=== PATIENT | female | born 1955 | race Caucasian/White ===

== ENCOUNTER 2021-03-16 08:52 | Inpatient (IN) | payer OTHER ==
[~2021-03-16] VITALS: Ht 154 cm; Wt 79.2 kg
[2021-03-16] MEDS ORDERED: diphenhydrAMINE 25 MG TAB (BENADRYL) PO PRN (11:45)
[2021-03-16] MEDS ORDERED: HYDROcodone/APAP 5 MG/325 MG (LORTAB) TAB PO PRN (11:45)
[2021-03-16] MEDS ORDERED: LOPERAMIDE 2 MG (IMODIUM) TABLET PO PRN (11:45)
[2021-03-16] MEDS ORDERED: LACTULOSE SYRUP 10GM/15ML (ENULOSE) 30ML UDC PO PRN (11:45)
[2021-03-16] MEDS ORDERED: guaiFENesin/CODEINE (ROBITUSSIN AC) 10ML UDC PO PRN (11:45)
[2021-03-16] MEDS ORDERED: BISACODYL 10 MG SUPP (DULCOLAX) PR PRN (11:45)
[2021-03-16] MEDS ORDERED: ALPRAZolam 0.25 MG (XANAX) TAB PO PRN (11:45)
[2021-03-16] MEDS ORDERED: FLEET ENEMA ADULT 1 EA BTL PR PRN (11:45)
[2021-03-16] MEDS ORDERED: DOCUSATE SODIUM 100 MG (COLACE) CAP PO PRN (11:45)
[2021-03-16] MEDS ORDERED: CALCIUM CARBONATE 500 MG (TUMS) TAB.CHEW PO PRN (11:45)
[2021-03-16] MEDS ORDERED: METF-397 PO (13:07)
[2021-03-16] MEDS ORDERED: HYDR-3820 PO (13:07)
[2021-03-16] MEDS ORDERED: DULO60CA59 PO (13:07)
[2021-03-16] MEDS ORDERED: EMPA25TA PO (13:07)
[2021-03-16] MEDS ORDERED: OMEP10CA5 PO (13:07)
[2021-03-16] MEDS ORDERED: FERR-74 PO (13:07)
[2021-03-16] MEDS ORDERED: INSU100V5 SQ (13:07)
[2021-03-16] MEDS ORDERED: LISI10TA25 PO (13:07)
[2021-03-16] MEDS ORDERED: DEXA2TAB PO ×2 (13:07)
[2021-03-16] MEDS ORDERED: INSU100V16 SQ (13:07)
[2021-03-16] MEDS ORDERED: NALO4SPR NS (13:07)
[2021-03-16] MEDS ORDERED: METO50TA7 PO (13:07)
[2021-03-16 13:40] VITALS: BP 138/62
--- NOTE | 2021-03-16 14:24 | Physical Therapy Evaluation ---
PT Evaluation-General Medical Diagnosis Admission Date Mar 16, 2021 at 13:40 Medical Diagnosis: Cerebral aneurysm Onset Date: Mar 16, 2021 Therapy Diagnosis Therapy Diagnosis: weakness; abn gait Precautions Precautions/Isolations: Standard Precautions Referral Physician: Malu Reason for Referral: Evaluation/Treatment Medical History Pertinent Medical History: CVA, DM, GERD, HTN Additional Medical History PTST, chronic fatigue syndrome, anemia, bells palsy Current History Pt diagnosed with [place] Palsy and through scanning, found the Cerebral aneurysm. s/p clip ligation 03/09/2021. Reviewed History: Yes Social History Home: Single Level Current Living Status: Spouse (family; several family members in her home) Entry Into Home: Ramp Prior Prior Level of Function SCALE: Activities may be completed with or without assistive devices. 7-Gwfmivmgfj-neacuzb completes the activity by him/herself with no assistance from a helper. 5-Set-up or Clean-up Assistance-helper sets up or cleans up; patient completes activity. [place] assists only prior to or following the activity. 4-Supervision or Touching Assistance-helper provides verbal cues and/or touching/steadying and/or contact guard assistance as patient completes ac tivity. Assistance may be provided throughout the activity or intermittently. 3-Partial/Moderate Assistance-helper does LESS THAN HALF the effort. [place] lifts, holds or supports trunk or limbs, but provides less than half the effort. 2-Substantial/Maximal Assistance-helper does MORE THAN HALF the effort. [place] lifts or holds trunk or limbs and provides more than half the effort. 1-Euvodlovw-mllmdz does ALL the effort. Patient does none of the effort to complete the activity. Or, the assistance of 2 or more helpers is required for the patient to complete the activity. If activity was not attempted, code reason: 7-Patient Refused. 9-Not Applicable-not attempted and the patient did not perform the activity before the current illness, exacerbation or injury. 10-Not Attempted due to Environmental Limitations-(lack of equipment, weather restraints, etc.). 88-Not Attempted due to Medical Conditions or Safety Concerns. Bed Mobility: 6 Transfers (B,C,W/C): 6 Gait: 6 Stairs: 6 Indoor Mobility (Ambulation): Independent Stairs: Independent Pt has available for use: SPC, FWW, shower chair and bedside commode. PT Evaluation-Current Subjective "I'm tired and worn out." Agrees to PT encounter. Pt/Family Goals Her goal is to return home with family at an indep to mod indep level of mobility. Objective Patient Orientation: Person, Place, Time, Situation ROM/Strength ROM Lower Extremities WNL Strength Lower Extremities Grossly 4/5 throughout. Integumentary/Posture Integumentary Refer to nursing notes for full assessment Bowel Incontinence: Yes (Pt reports incont for approx 6 months; medication related) Bladder Incontinence: No Posture normal and symmetrical Neuromuscular (Tone, Coordination, Reflexes) intact and functional Sensory Vision: Functional Hearing: Functional Hand Dominance: Right Sensation Right Lower Extremit: Intact Sensation Left Lower Extremity: Intact Transfers Roll Left & Right (QC): 4 Sit to Lying (QC): 4 Lying to Sitting/Side of Bed(Q: 4 Sit to Stand (QC): 4 (CGA for balance and safety) Chair/Ebx-es-Rrimq Xfer(QC): 4 Toilet Transfer (QC): 4 Car Transfer (QC): 3 (min assist to turn and with legs. ) Gait Does the Patient Walk?: Yes Mode of Locomotion: Walk Anticipated Mode of Locomotion: Walk Walk 10 feet (QC): 4 Walk 50 ft with 2 Turns(QC): 4 Walk 150 ft (QC): 3 (min assist for balacne and safety. ) Walking 10ft/uneven surface-QC: 7 (will assess in following visit. ) Gait Assistive Device: FWW Comments/Gait Description Min to CGA with gait for safety and balance; skilled cues for safe use of walker. Wheelchair Training Wheel 50 ft with 2 turns (QC): 9 Wheel 150 ft (QC): 9 Stairs 1 Step (curb) (QC): 7 4 Steps (QC): 7 12 Steps (QC): 7 see follow up note. Balance Sitting Static: Normal Sitting Dynamic: Normal Standing Static: Fair Standing Dynamic: Fair Picking up an Object (QC): 3 (min assist for safety) Assessment/Needs Pt is post cerebral aneurysm with slight functional strength deficits, balance deficits and impaired functional bed mobility, transfers and gait which impacts indep mobility and the ability to care for herself at home as before. Rehab Potential: Good PT Short Term Goals Short Term Goals Time Frame: Mar 23, 2021 Sit to lyin Lying to sitting on side of be: 6 Sit to stand: 5 Chair/zyz-ci-gnrsb transfer: 5 Walk 150 feet: 4 PT Tool Grinding Technician Goals Usp Goals PT Usp Goals Time Frame: Mar 31, 2021 Roll Left & Right (QC): 6 Sit to Lying (QC): 6 Lying-Sitting on Side/Bed(QC): 6 Sit to Stand (QC): 6 Chair/Pmn-gr-Oxqqw Xfer(QC): 6 Toilet Transfer (QC): 6 Car Transfer (QC): 6 Does the Patient Walk: Yes Walk 10 feet (QC): 6 Walk 50ft with 2 Turns (QC): 6 Walk 150 ft (QC): 6 Walking 10ft on Uneven Surface: 6 1 Step (curb) (QC): 6 4 Steps (QC): 6 12 Steps (QC): 4 Picking up an Object (QC): 5 Does the Pt use WC or Scooter?: No Wheel 50 feet with 2 turns (QC: 9 Wheel 150 feet: 9 PT Plan Problem List Problem List: Activity Tolerance, Functional Strength, Safety, Balance, Gait, Transfer, Bed Mobility Treatment/Plan Treatment Plan: Continue Plan of Care Treatment Plan: Bed Mobility, Education, Functional Activity Tracey, Functional Strength, Group Therapy, Gait, Safety, Therapeutic Exercise, Transfers Treatment Duration: Mar 31, 2021 Frequency: At least 5 of 7 days/Wk (IRF) Estimated Hrs Per Day: 1.5 hours per day Patient and/or Family Agrees t: Yes Safety Risks/Education Patient Education: Safety Issues Teaching Recipient: Patient Teaching Methods: Demonstration, Discussion Response to Teaching: Reinforcement Needed Time/GCodes Time In: 1340 Time Out: 1355 Total Billed Treatment Time: 15 Total Billed Treatment visit CECILY TORRES PT Mar 16, 2021 14:24
--- NOTE | 2021-03-16 15:18 | Physical Therapy Daily Note ---
PT Daily Note-Current Subjective Patient agrees to therapy. Pain Numeric Pain Scale: 5-Moderate Pain Location: Right Location Body Site: Face Pain Description: Ache Mental Status Patient Orientation: Person, Time, Situation Transfers SCALE: Activities may be completed with or without assistive devices. 6-Zevmdibrdy-ccicpxu completes the activity by him/herself with no assistance from a helper. 5-Set-up or Clean-up Assistance-helper sets up or cleans up; patient completes activity. [place] assists only prior to or following the activity. 4-Supervision or Touching Assistance-helper provides verbal cues and/or touching/steadying and/or contact guard assistance as patient completes activity. Assistance may be provided throughout the activity or intermittently. 3-Partial/Moderate Assistance-helper does LESS THAN HALF the effort. [place] lifts, holds or supports trunk or limbs, but provides less than half the effort. 2-Substantial/Maximal Assistance-helper does MORE THAN HALF the effort. [place] lifts or holds trunk or limbs and provides more than half the effort. 4-Fqimiwcou-bfvnzr does ALL the effort. Patient does none of the effort to complete the activity. Or, the assistance of 2 or more helpers is required for the patient to complete the activity. If activity was not attempted, code reason: 7-Patient Refused. 9-Not Applicable-not attempted and the patient did not perform the activity before the current illness, exacerbation or injury. 10-Not Attempted due to Environmental Limitations-(lack of equipment, weather restraints, etc.). 88-Not Attempted due to Medical Conditions or Safety Concerns. Sit to Lying (QC): 4 Lying to Sitting/Side of Bed(Q: 4 Sit to Stand (QC): 4 (x 8 sets) Chair/Nqe-rp-Qxrnp Xfer(QC): 4 Gait Training Does the Patient Walk?: Yes Distance: 150' x 2 Walk 10 feet (QC): 4 Walk 50 ft with 2 Turns(QC): 4 Walk 150 ft (QC): 4 Walking 10ft/uneven surface-QC: 4 Gait Assistive Device: FWW slow, steady CGA for safety Stair Training Stair Training: Handrails/: 2 handrails #of Steps: 4 1 Step (curb) (QC): 3 4 Steps (QC): 3 12 Steps (QC): 9 Stairs: Pattern: Step to Balance Picking up an Object (QC): 6 (seated position) Exercises Seated Therapy Exercises: Ankle pumps, Long arc quads, Hip flexion Seated Reps: 15 Treatments Pt. is seen this date for co-treatment with OT/PT due to poor endurance s/p transfer via private vehicle from [place]. Pt. presents s/p craniotomy, and reports difficulty with light sensitivity, headache, and severe fatigue. OT facilitates ADL skills training, visual skills assessment, UE assessment, and provides energy conservation education while PT facilitates dynamic standing balance training, safety with movement and transfers, assistive device training, and LE strength assessment. Pt. is able to ambulate with CGA/min assist with walker, with cues for safety. She does report double vision, but declines eye patch at this time, and states that she is getting medication for this. OT will complete further assessment of this at later time. Note some impulsive behavior during ambulation and movement, with cues for safety and use of walker. Will continue to assess cognition/sequencing and problem solving skills to increase o verall independence with functional tasks for successful return home. Assessment Patient tolerated treatment well and returned to bed with 4 rails up and bed alarm activated. Patient reports fatigue and requests pain medication due to MARQUEZ. RN notified. PT Short Term Goals Short Term Goals Time Frame: Mar 23, 2021 Sit to lyin Lying to sitting on side of be: 6 Sit to stand: 5 Chair/xjs-my-rdbix transfer: 5 Walk 150 feet: 4 PT Group Home Goals Leather Dresser Goals PT Group Home Goals Time Frame: Mar 31, 2021 Roll Left & Right (QC): 6 Sit to Lying (QC): 6 Lying-Sitting on Side/Bed(QC): 6 Sit to Stand (QC): 6 Chair/Fqs-cv-Ohjth Xfer(QC): 6 Toilet Transfer (QC): 6 Car Transfer (QC): 6 Does the Patient Walk: Yes Walk 10 feet (QC): 6 Walk 50ft with 2 Turns (QC): 6 Walk 150 ft (QC): 6 Walking 10ft on Uneven Surface: 6 1 Step (curb) (QC): 6 4 Steps (QC): 6 12 Steps (QC): 4 Picking up an Object (QC): 5 Does the Pt use WC or Scooter?: No Wheel 50 feet with 2 turns (QC: 9 Wheel 150 feet: 9 PT Plan Treatment/Plan Treatment Plan: Continue Plan of Care Treatment Plan: Bed Mobility, Education, Functional Activity Tracey, Functional Strength, Group Therapy, Gait, Safety, Therapeutic Exercise, Transfers Treatment Duration: Mar 31, 2021 Frequency: At least 5 of 7 days/Wk (IRF) Estimated Hrs Per Day: 1.5 hours per day Patient and/or Family Agrees t: Yes Time/GCodes Time In: 1405 Time Out: 1525 Total Billed Treatment Time: 80 Total Billed Treatment 1 visit FA x 5 80 min (cotreat with OT) WILD GOLDBERG PT Mar 16, 2021 15:18
--- NOTE | 2021-03-16 15:21 | Occupational Therapy Eval ---
OT Evaluation-General/PLF Medical Diagnosis Admission Date Mar 16, 2021 at 13:40 Medical Diagnosis: Cerebral aneurysm Onset Date: Mar 16, 2021 Therapy Diagnosis Therapy Diagnosis: Weakness, Decreased ADL skills Precautions Precautions/Isolations: Fall Prevention, Standard Precautions Referral Physician: Malu Coronado Reason: Activity Tolerance, Self Care, Evaluation/Treatment, Strengthening/ROM Medical History Pertinent Medical History: Arthritis, CVA, DM, GERD, HTN Additional Medical History Dyslipidemia Current History Pt. 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 s/p right frontotemporal craniotomy. Subarachnoid dissection. Pt. currently has headaches, light sensitivity, memory deficits, and impulsively. Reviewed History: Yes Social History Home: Single Level Current Living Status: Spouse (family; several family members in her home) Entry Into Home: Ramp Steps Inside Home: 1 ADL-Prior Level of Function SCALE: Activities may be completed with or without assistive devices. 0-Kxrjcsmbzm-krifvsw completes the activity by him/herself with no assistance from a helper. 5-Set-up or Clean-up Assistance-helper sets up or cleans up; patient completes activity. [place] assists only prior to or following the activity. 4-Supervision or Touching Assistance-helper provides verbal cues and/or touching/steadying and/or contact guard assistance as patient completes activity. Assistance may be provided throughout the activity or intermittently. 3-Partial/Moderate Assistance-helper does LESS THAN HALF the effort. [place] lifts, holds or supports trunk or limbs, but provides less than half the effort. 2-Substantial/Maximal Assistance-helper does MORE THAN HALF the effort. [place] lifts or holds trunk or limbs and provides more than half the effort. 7-Genwrtkeu-kwqlpg does ALL the effort. Patient does none of the effort to complete the activity. Or, the assistance of 2 or more helpers is required for the patient to complete the activity. If activity was not attempted, code reason: 7-Patient Refused. 9-Not Applicable-not attempted and the patient did not perform the activity before the current illness, exacerbation or injury. 10-Not Attempted due to Environmental Limitations-(lack of equipment, weather restraints, etc.). 88-Not Attempted due to Medical Conditions or Safety Concerns. ADL PLOF Comments Pt. states that previous to this hospitalization, she was independent with daily skills. She has a walker from a previous broken ankle that she recovered from. Pt. lives in [place] with her spouse, daughter, and multiple grandchildren. Her spouse is retired and in good health. She is currently retired as well. Self Care: Unknown Functional Cognition: Unknown DME/Equipment Comments Pt. has a walker but does not use. 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 OT Current Status Subjective Pt. reports headache and light sensitivity. Does request pain medication. Does not state pain level. Mental Status/Objective Patient Orientation: Person, Place Current Hand Dominance: Right Upper Extremity ROM Pt. is able to actively range left shoulder to approximately 90 degrees. Right shoulder to approximately 100 degrees. She states that left shoulder has arthritis. Upper Extremity Strength Pt. demonstrates approximately 4/5 strength within available range throughout. ADL-Treatment Eating (QC): 5 (per report) Oral Hygiene (QC): 7 Shower/Bathe Self (QC): 4 (CGA for balance and cues for safety. Pt. impulsive at times in shower. Will sit, stand multiple times.) Upper Body Dressing (QC): 4 Lower Body Dressing (QC): 4 (CGA/SBA in shower to doff/don pants.) On/Off Footwear (QC): 5 (Slipper socks and slippers.) Toileting Hygiene (QC): 4 (SBA in stance. Pt. is incontinent of bowel due to medication, but she is able to cleanse self with SBA for balance and safety.) Other Treatments Pt. is seen this date for co-treatment with OT/PT due to poor endurance s/p transfer via private vehicle from [place], [place]. Pt. presents s/p craniotomy, and reports difficulty with light sensitivity, headache, and severe fatigue. OT facilitates ADL skills training, visual skills assessment, UE assessment, and provides energy conservation education while PT facilitates dynamic standing balance training, safety with movement and transfers, assistive device training, and LE strength assessment. Pt. is able to ambulate with CGA/min assist with walker, with cues for safety. She does report double vision, but declines eye patch at this time, and states that she is getting medication for this. OT will complete further assessment of this at later time. Note some impulsive behavior during ambulation and movement, with cues for safety and use of walker. Will continue to assess cognition/sequencing and problem solving skills to increase overall independence with functional tasks for successful return home. Education OT Patient Education: Correct positioning, Exercise program, Modified ADL techniques, Progress toward Goal/Update tx plan, Purpose of tx/functional activities, Reviewed precautions, Rehab process, Transfer techniques Teaching Recipient: Patient Teaching Methods: Demonstration, Discussion Response to Teaching: Verbalize Understanding, Return Demonstration OT Jail Goals Jail Goals Time Frame: Mar 30, 2021 Eating (QC): 6 Oral Hygiene (QC): 6 Toileting Hygiene (QC): 6 Shower/Bathe Self (QC): 6 Upper Body Dressing (QC): 6 Lower Body Dressing (QC): 6 On/Off Footwear (QC): 6 Additional Goals: 1-Demonstrate ADL Tasks, 2-Verbalize Understanding, 3- ImproveStrength/Tracey 1=Demonstrate adherence to instructed precautions during ADL tasks. 2=Patient will verbalize/demonstrate understanding of assistive devices/modifica tions for ADL. 3=Patient will improve strength/tolerance for activity to enable patient to perform ADL's. OT Education/Plan Problem List/Assessment Assessment: Decreased Activ Tolerance, Dependent Transfers, Impaired Cognition, Impaired Funct Balance, Impaired I ADL's, Impaired Self-Care Skills, Restricted Funct UE ROM, Visual-Perceptual Deficit Discharge Recommendations Plan/Recommendations: Continue POC Therapy Discharge Recommendati: Post Acute OT Treatment Plan/Plan of Care Treatment,Training & Education: Yes Patient would benefit from OT for education, treatment and training to promote independence in ADL's, mobility, safety and/or upper extremity function for ADL's. Plan of Care: ADL Retraining, Functional Mobility, UE Funct Exercise/Act, Visual/Perceptual Retrain Treatment Duration: Mar 30, 2021 Frequency: At least 5 of 7 days/Wk (IRF) Estimated Hrs Per Day: 1.5 hours per day Agreement: Yes Rehab Potential: Good Time/GCodes Start Time: 13:55 Stop Time: 15:25 Total Time Billed (hr/min): 90 Billed Treatment Time 0400-8599- 1, EVM x 10minutes [id number]- ADL x 45minutes, FA x 35minutes- Co-treat with PT RHETT EDGAR OT Mar 16, 2021 15:21
[2021-03-16] MEDS ORDERED: DEXAMETHASONE 2 MG PO SCH (16:30)
[2021-03-16] MEDS: ONDANSETRON 4 MG (ZOFRAN) ORAL DISSOLVE TAB PO PRN (17:31)
[2021-03-16] MEDS: metFORMIN 500 MG (GLUCOPHAGE) TAB PO SCH (17:31)
[2021-03-16 20:00] VITALS: BP 101/53
--- NOTE | 2021-03-16 20:43 | PM&R Post Admission Assessment ---
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 She is currently doing well since admit and she denies voiding difficulties and reports her bowels are functioning normally. Patient denies pain. PT OT will focus on regaining function of loss of balance and loss of right sided peripheral vision and fall risk prevention. PLOF was independent. 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 H&P [facility]: HISTORY OF PRESENT ILLNESS: Ms. Demetrice Fishman presents for additional evaluation. 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 This patient underwent an MRI of the brain and a CT angiogram of the head, which identified the presence of an Acom aneurysm. This patient underwent cerebral angiography performed on February 07, 2021, which identified the presence of a 4 x 3 x 5 mm aneurysm with an unfavorable dxeq-sn-dzpp ratio in the setting of a hypoplastic left A1. This patient is very concerned about the presence of thi s aneurysm and is seeking treatment for this finding. This patient complains of frequent headaches. She denies fever, chills, or weight loss. She denies chest pain or shortness of breath. She has a history of Cedillo's palsy. PAST MEDICAL HISTORY: 1. Type 2 diabetes. 2. Depression. 3. Dyslipidemia. 4. Cedillo's palsy. 5. Thyroid nodule. 6. Obesity, 30.0-34.9 kg/sq m. 7. Iron deficiency anemia. 8. GERD. 9. Hypertension. 10. Posttraumatic stress disorder. 11. Fatty liver. 12. Chronic fatigue syndrome. PAST SURGICAL HISTORY: 1. EGD, 2019. 2. Excisional biopsy, 2001. 3. Hysterectomy, 1999. 4. Polypectomy, 2019. 5. TAHBSO, 2000. 6. Bilateral tubal ligation. 7. Colonoscopy, 2019. 8. Jaw reconstruction, 2009. MEDICATIONS: 1. Cymbalta 60 mg daily. 2. Ferrous sulfate 325 mg daily. 3. FluticasoneMDI. 4. Jardiance 25 mg daily. 5. Levemir 35 units subcu at bedtime. 6. Lisinopril 10 mg daily. 7. Metformin 500 mg 2 tablets q.a.m. and 1 tablet q.h.s. 8. Toprol-XL 50 mg daily. 9. NovoLog insulin 5 to 20 units sliding scale a.c. DC note from [facility]: Date of Admission:03/09/2021 Date of Discharge:03/16/2021 Admitting Diagnosis:Cerebral aneurysm [I67.1] Discharge Diagnosis:Cerebral aneurysm [I67.1], Procedure: 1. Right frontotemporal craniotomy. 2. Subarachnoid dissection. 3. Microsurgical dissection. 4. Anterior communicating artery aneurysm clipping, complex. 5. Duraplasty. 6. Loupe magnification dissection. 7. Intraoperative SSEP/EEG neurophysiological monitoring. 8. Intraoperative cerebrovascular Doppler sonography. 9. Intraoperative IC Green microscopic cerebral angiography. Admitting Neurosurgeon: Dr. Peewee Arias History of Illness:Sd a 65-year-old white female, who was diagnosed with an Acom aneurysm based on a workup for Cedillo palsy in December 2020. This patient underwent a CT angiogram of the head and neck, which identified the presence of an ACom aneurysm. This patient therefore underwent cerebral angiography for diagnostic evaluation on February 07, 2021. This study identifies the presence of an ACom aneurysm, that measures 3 x 5 mm. This patient is extremely concerned about this aneurysm and has requested treatment for this lesion. I did not believe this aneurysm was best treatable by endovascular embolization, and therefore, this patient presents for operative intervention consisting of a craniotomy for aneurysm clipping. Hospital Course:Mistynt an uncomplicated surgical intervention, was extubated, and then transferred to the post-anesthesia care unit. Once Juana stabilized in the PACU noahs then transferred to the ICU for overnight observation and then orders were placed to transfer to the neuro floor the following day. While on 6CRuthiewas ambulating with minimal assistance, voiding without difficulty, tolerating oral food and fluids, and pain was controlled with oral pain medications. wilfrid then discharged to inpatient rehab in stablecondition on 03/16/2021. Past Medical History Past Medical History: Diagnosis Date CVD (cerebrovascular disease) Depression Diabetes Fatty liver GERD (gastroesophageal reflux disease) HTN (hypertension) Hyperlipidemia Motion sickness Post-operative nausea and vomiting Past Surgical History Past Surgical History: Procedure Laterality Date CARDIAC STRESS TEST REPORT 06/29/10 normal HX EGD N/A 02/09/2020 ESOPHAGOGASTRODUODENOSCOPY WITH DILATION performed by Nini Hughes MD at [facility] HX EXCISIONAL BIOPSY 2001 Lt benign HX HYSTERECTOMY 1999 total - no cancer HX POLYPECTOMY 02/09/2020 POLYPECTOMY performed by Nini Hughes MD at [facility] HX LONG AND BSO 2000 total HX TUBAL LIGATION IA ANEURYSM, INTRACRAN, SIMPLE SURG Right 03/09/2021 CRANIOTOMY ANEURYSM performed by Peewee Arias MD at [facility] OR IA COLSC FLX W/RMVL OF TUMOR POLYP LESION SNARE TQ N/A 02/09/2020 COLONOSCOPY WITH POLYPECTOMY performed by Nini Hughes MD at [facility] IA EGD TRANSORAL BIOPSY SINGLE/MULTIPLE N/A 02/09/2020 STOMACH BIOPSY ENDOSCOPIC performed by Nini Hughes MD at [facility] IA ESOPHAGEAL MOTILITY STUDY W/INTERP&RPT N/A 02/09/2020 ESOPHAGEAL MOTILITY MANOMETRY STUDY performed by Nini Hughes MD at [facility] IA EXCIS BOWEL LESION(S),SINGLE ENTEROTOMY N/A 02/09/2020 COLON BIOPSY performed by Nini Hughes MD at [facility] IA IONM 1 ON 1 IN OR W/ATTENDANCE EACH 15 MINUTES N/A 03/09/2021 INTRAOPERATIVE NEUROPHYSIOLOGIC MONITORING performed by Peewee Arias MD at [facility] OR IA RECONSTR JAW,PART-SUB IMPLNT 2009 underbite No current facility-administered medications on file prior to encounter. Current Outpatient Medications on File Prior to Encounter Medication Sig Dispense Refill omeprazole (PriLOSEC) 10 mg Capsule, Delayed Release(E.C.) Take 10 mg by mouth daily. ferrous sulfate 325 mg (65 mg iron) tablet Take 325 mg by mouth daily. LEVEMIR U-100 INSULIN 100 unit/mL vial Inject 35 Units by subcutaneous injection daily at bedtime. metFORMIN (GLUCOPHAGE XR) 500 mg Extended Release 24 hour tablet Take 1,000 mg by mouth 2 times daily. Takes 1000 mg at bedtime JARDIANCE 25 mg tablet TAKE ONE TABLET BY MOUTH ONCE DAILY IN THE GEOLOGICAL ENGINEER 90 Tablet 2 DULoxetine (CYMBALTA) 60 mg Capsule, Delayed Release(E.C.) TAKE ONE CAPSULE BY MOUTH TWICE DAILY (Patient taking differently: Take 60 mg by mouth daily. evening ) 90 Capsule 1 Insulin Syringes, Disposable, 1 mL Syringe To be used twice daily to administer insulin.. 60 Syringe 11 lisinopril (PRINIVIL) 10 mg tablet Take 1 Tablet (10 mg) by mouth daily. 90 Tablet 3 metoprolol succinate (TOPROL XL) 50 mg Extended Release 24 hour tablet TAKE 1 TABLET BY MOUTH EVERY DAY. 90 Tablet 3 Insulin [place], Disposable, (Rachel Pen Needle) 32 gauge x 5/32" Needle 1 Each [place] [facility]Non-Drug; Combo Route) route daily at bedtime. 90 Each 3 Insulin Syringe-Needle U-100 0.3 mL 31 gauge x 5/16 Syringe Use nightly at bedtime along with Rohit Abrahamar for diagnosis of ICD-10-CM: E11.65, Z79.4. 100 Each 5 blood sugar diagnostic (TRUETEST TEST STRIPS) [facility] [place] 1 Strip by See Admin Instructions route. 100 Strip 3 NOVOLOG U-100 INSULIN ASPART 100 unit/mL vial INJECT 5-20 UNITS PER SLIDING SCALE WITH MEALS SUBCUTANEOUSLY. MAX DAILY DOSE 60 UNITS PER DAY. Allergies Allergen Reactions Tramadol Nausea and Vomiting Discharge Instructions:Trini discharged to inpatient rehabin stable condition on 03/16/2021. She was instructed to leave the dressing in place until she returns to our office in 2-3 weeks for dressing and staple removal.A follow-up appointment was schedule for Jef ky in 2-3 weeks.Medications at discharge included: Medication List START taking these medications dexAMETHasone2 mg tablet Commonly known as: DECADRON Take 1 Tablet (2 mg) by mouth 2 times daily for 7 days, THEN 1 Tablet (2 mg) daily for 7 days. Start taking on: March 10, 2021 Signed by: Peewee Arias MD Quantity: 21 Tablet Refills: 0 FMJSQrgntpu-oxzlzuvhfnhqm55-776 mg Tablet Commonly known as: NORCO Take 1 Tablet by mouth every 4 hours as needed for Pain. Max Daily Amount: 6 Tablets Signed by: Peewee Arias MD Quantity: 42 Tablet Refills: 0 naloxone4 mg/spray [place], Non-Aerosol Commonly known as: NARCAN EMERGENCY USE ONLY: Administer 1 spray (4 mg) in one nostril one time. May repeat in alternating nostrils every 2-3 min until responsive or EMS arrives. Signed by: BOZENA Kurtz Quantity: 2 Each Refills: 3 CHANGE how you take these medications JJMjnjpbks39 mg Capsule, Delayed Release(E.C.) Commonly known as: CYMBALTA What changed: See the new instructions. TAKE ONE CAPSULE BY MOUTH TWICE DAILY Signed by: Olivia Lau DO Quantity: 90 Capsule Refills: 1 CONTINUE taking these medications blood sugar diagnosticStrip Commonly known as: Truetest Test Strips 1 Strip by See Admin Instructions route. Signed by: Olivia Lau DO Quantity: 100 Strip Refills: 3 ferrous cznpysx614 mg (65 mg iron) tablet Take 325 mg by mouth daily. Refills: 0 Insulin [place] (Disposable)32 gauge x 5/32" Needle Commonly known as: Rachel Pen Needle 1 Each by [facility]Non-Drug; Combo Route) route daily at bedtime. Signed by: Olivia Lau DO Quantity: 90 Each Refills: 3 Insulin Syringe-Needle U-1000.3 mL 31 gauge x 5/16" Syringe Use nightly at bedtime along with Lantus Solostar for diagnosis of ICD-10-CM: E11.65, Z79.4. Signed by: Olivia Lau DO Quantity: 100 Each Refills: 5 Insulin Syringes (Disposable)1 mL Syringe To be used twice daily to administer insulin.. Signed by: Olivia Lau DO Quantity: 60 Syringe Refills: 11 Nlbgnlfdv84 mg tablet TAKE ONE TABLET BY MOUTH ONCE DAILY IN THE GEOLOGICAL ENGINEER Signed by: Olivia Lau DO Quantity: 90 Tablet Refills: 2 Generic drug: empagliflozin Levemir U-100 Mvwjnfg722 unit/mL vial Inject 35 Units by subcutaneous injection daily at bedtime. Refills: 0 Generic drug: insulin detemir U-100 tougwqziaR09 mg tablet Commonly known as: PRINIVIL Take 1 Tablet (10 mg) by mouth daily. Signed by: Olivia Lau DO Quantity: 90 Tablet Refills: 3 [id number] mg Extended Release 24 hour tablet Commonly known as: GLUCOPHAGE XR Take 1,000 mg by mouth 2 times daily. Takes 1000 mg at bedtime Refills: 0 metoprolol hofsowyjz96 mg Extended Release 24 hour tablet Commonly known as: TOPROL XL TAKE 1 TABLET BY MOUTH EVERY DAY. Signed by: Olivia Lau DO Quantity: 90 Tablet Refills: 3 NovoLOG U-100 Insulin tigihd695 unit/mL vial INJECT 5-20 UNITS PER SLIDING SCALE WITH MEALS SUBCUTANEOUSLY. MAX DAILY DOSE 60 UNITS PER DAY. Refills: 0 Generic drug: insulin aspart U-100 kzcklejcod64 mg Capsule, Delayed Release(E.C.) Commonly known as: PriLOSEC Take 10 mg by mouth daily. Refills: 0 Where to Get Your Medications These medications were sent to [facility] - [place], [place] - [address] [facility] [id number] HYDROcodone-acetaminophen 10-325 mg Tablet naloxone 4 mg/spray [place], Non-Aerosol Past Zckqais-Uhosxu-Estipu Hx Past Med/Social Hx: Reviewed Nursing Past Med/Soc Hx, Reviewed and Corrections made Patient Social History Marrital Status: Employed/Student: retired Alcohol Use: Denies Use Smoking Status: Former Smoker Past Medical History craniotomy 03/09/21 for cerebral aneurysm Cardiac: Hypertension Gastrointestinal: Gastroesophageal Reflux MITCHELL Musculoskeletal: Arthritis Endocrine: Diabetes, Insulin dep Prior Level of Function Bed Mobility: 6 Transfers: 6 Gait: 6 Stairs: 6 Indoor Mobility (Ambulation): Independent Stairs: Independent Self Care: Unknown Functional Cognition: Unknown 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 Current Level of Fuctioning Roll Left to Right: 4 Sit to Lyin Lying to Sitting/Side of Bed: 4 Sit to Stand: 4 (x 8 sets) Chair/Vsw-ex-Xzkvz Xfer: 4 Car Transfer: 3 (min assist to turn and with legs. ) Does the Patient Walk: Yes Mode of Locomotion: Walk Anticipated Mode of Locomotion: Walk Walk 10 feet: 4 Walk 50 ft with 2 Turns: 4 Walk 150 ft: 4 Walking 10ft on uneven surface: 4 Gait Assistive Device: FWW Wheel 50 ft with 2 turns: 9 Wheel 150 ft: 9 #of Steps: 4 1 Step (curb): 3 4 Steps: 3 12 Steps: 9 Picking up an Object: 6 (seated position) Eatin (per report) Oral Hygiene: 7 Shower/Bathe Self: 4 (CGA for balance and cues for safety. Pt. impulsive at times in shower. Will sit, stand multiple times.) Upper Body Dressin Lower Body Dressin (CGA/SBA in shower to doff/don pants.) On/Off Footwear: 5 (Slipper socks and slippers.) Toileting Hygiene: 4 (SBA in stance. Pt. is incontinent of bowel due to medication, but she is able to cleanse self with SBA for balance and safety.) PM&R Allergy/Meds/Data Review Allergies Coded Allergies: No Allergy Information Available (Unverified , 03/16/21) Home Medications Scheduled Dexamethasone (Dexamethasone), 2 MG PO UD, (Reported) Dexamethasone (Dexamethasone), 2 MG PO DAILY, (Reported) Duloxetine HCl (Duloxetine HCl), 60 MG PO BID, (Reported) Empagliflozin (Jardiance), 25 MG PO DAILY, (Reported) Ferrous Sulfate (Ferrous Sulfate), 325 MG PO DAILY, (Reported) Insulin Aspart (Novolog), 5-20 UNIT SQ TIDWM, (Reported) Insulin Determir (Levemir), 35 UNITS SQ HS, (Reported) Lisinopril (Lisinopril), 10 MG PO DAILY, (Reported) Metformin HCl (Metformin HCl), 1,000 MG PO 1800 W/MEAL, (Reported) Metoprolol Succinate (Metoprolol Succinate), 50 MG PO DAILY, (Reported) Omeprazole (Omeprazole), 10 MG PO DAILY, (Reported) Scheduled PRN Hydrocodone/Acetaminophen (Hydrocodone-Acetamin 10-325 mg), 1 EACH PO Q6H PRN for PAIN-MODERATE (5-7), (Reported) Naloxone HCl (Narcan), 1 SPRAY NS UD PRN for OVERDOSE, (Reported) Current Medications Current Medications Reviewed Laboratory Data Laboratory Tests 03/16/21 15:28: Glucometer 245H 03/16/21 20:22: Glucometer 232H Review of Systems Constitutional: see HPI, malaise, weakness EENTM: blurred vision, vision loss Respiratory: no symptoms reported Cardiovascular: no symptoms reported Gastrointestinal: no symptoms reported Genitourinary: no symptoms reported Musculoskeletal: no symptoms reported Skin: no symptoms reported Psychiatric/Neurological: Anxiety Physical Exam Physical Exam Vital Signs Vital Signs - First Documented 03/16/21 13:40 Temp 36.0 Pulse 51 Resp 21 B/P (MAP) 138/62 (87) Pulse Ox 94 O2 Delivery Room Air Capillary Refill : Height, Weight, BMI Height: '" Weight: lbs. oz. kg; 31.87 BMI Method: General Appearance: No Apparent Distress, WD/WN, Chronically ill, Obese Eyes: Bilateral Eye Normal Inspection, Bilateral Eye PERRL HEENT: PERRL/EOMI, Normal ENT Inspection, Pharynx Normal, Other (right sided peripheral vision deficit) Neck: Full Range of Motion, Normal Inspection, Non Tender, Supple, Carotid Bruit Respiratory: Chest Non Tender, Lungs Clear, Normal Breath Sounds, No Accessory Muscle Use, No Respiratory Distress Cardiovascular: Regular Rate, Rhythm, No Edema, No Gallop, No JVD, No Murmur, Normal Peripheral Pulses Gastrointestinal: Normal Bowel Sounds, No Organomegaly, No Pulsatile Mass, Non Tender, Soft Back: Normal Inspection, No CVA Tenderness, No Vertebral Tenderness Extremity: Normal Capillary Refill, Normal Inspection, Normal Range of Motion, Non Tender, No Calf Tenderness, No Pedal Edema Neurologic/Psychiatric: Alert, Oriented x3, No Motor/Sensory Deficits, greenhouse grower II- XII Norm as Tested, Abnormal Gait, Depressed Affect, Motor Weakness (generalized) Skin: Normal Color, Warm/Dry Lymphatic: No Adenopathy PM&R Medical Assessment & Plan REHAB/MEDICAL ASSESSMENT AND PLAN: REHAB IMPAIRMENT GROUP: Craniotomy for cerebral aneurysm clipping ETIOLOGIC DIAGNOSIS: Craniotomy for cerebral aneurysm clipping The comorbidities that impact the patients function and/or functional outcome by: PTSD hx, depression, cerebral edema on steroids, fall risk REHAB PLAN: The patient is being admitted to our comprehensive inpatient rehabilitation fac ili and can tolerate the intensity of service consisting of at least: 180 minutes of therapy a day, 5 out of 7 days a week Rehab treatment will consist of: PT OT will focus on regaining ambulatory function and educate on fall prevention along with improving stamina and increasing ADL independence The patient/family has a good understanding of our discharge process and will benefit from an interdisciplinary inpatient rehabilitation program. The patient has potential to make improvement and is in need of at least two of the following multidisciplinary therapies including but not limited to physical, occupational, speech, and prosthetics and orthotics. Additionally the patient will need services from respiratory, nutritional services, wound care, psychology, etc. (Customize this to each patient). Given the patients complex condition and risk of further medical complications, rehabilitation services cannot be safely or effectively provided at a lower level of care such as a fpc facility. BARRIERS TO DISCHARGE: Fall risk ESTIMATED LOS: 7 days DISPOSITION: Home with spouse RELEVANT CHANGES SINCE PREADMISSION SCREENING: I have compared the patients medical and functional status at the time of the preadmission screening and there are: no changes PROGNOSIS: Good REHABILITATION GOALS: 1. PT OT will focus on regaining ambulatory function and educate on fall prevention along with improving stamina and increasing ADL independence All the above goals were reviewed with the patient and he/she is in agreement. By signing this document, I acknowledge that I have personally performed a full physical examination on this patient within 24 hours of admission to this inpatient rehabilitation facility and have determined the patient to be able to tolerate the above course of treatment at an intensive level for a reasonable period of time. I will be completing a detailed individualized Plan of Care for this patient by day #4 of the patients stay based upon the Preadmission Screen, the Post-Admission Evaluation, and the therapy evaluations. Admission Dx/Comorbidities: (1) Cerebral aneurysm ICD Codes: I67.1 - Cerebral aneurysm, nonruptured (2) S/P craniotomy ICD Codes: Z98.890 - Other specified postprocedural states (3) Cerebral edema ICD Codes: G93.6 - Cerebral edema (4) Vision loss ICD Codes: H54.7 - Unspecified visual loss (5) Diabetes mellitus ICD Codes: E11.9 - Type 2 diabetes mellitus without complications (6) Hypertension ICD Codes: I10 - Essential (primary) hypertension (7) BMI 31.0-31.9,adult ICD Codes: Z68.31 - Body mass index [BMI] 31.0-31.9, adult (8) Anemia ICD Codes: D64.9 - Anemia, unspecified Assessment/Plan Assessment and Plan Assess & Plan/Chief Complaint Assessment: s/p craniotomy for cerebral aneurysm clipping 03/09/21 Loss of right sided peripheral vision Loos of balance Impulsiveness Type 2 diabetes. Depression. Dyslipidemia. Cedillo's palsy. Thyroid nodule. Obesity, 30.0-34.9 kg/sq m. Iron deficiency anemia. GERD. Hypertension. Posttraumatic stress disorder. Fatty liver. Chronic fatigue syndrome Plan: IRF protocol Pain control Home meds Steroids JERRI GARZA DO Mar 16, 2021 20:43
[2021-03-16] MEDS ORDERED: NON-FORMULARY MEDICATION 1 EA EA (Duloxetine HCl 60 MG) PO SCH (21:00)
[2021-03-16] MEDS: inSUlin ASPART (NovoLOG) 1 UNIT/0.01 ML (CHARGE PER UNIT) SC SCH (21:46)
[2021-03-16] MEDS: polyethylene glycoL POWDER 17 GM (MIRALAX) PACK PO SCH (21:48)
[2021-03-16] MEDS: SENNA W/DOCUSATE (SENOKOT S) TABLET PO SCH (21:48)
[2021-03-16] MEDS: DOCUSATE SODIUM 100 MG (COLACE) CAP PO SCH (21:48)
[2021-03-16] MEDS: DULoxetine 30 MG (CYMBALTA) CAP PO SCH (21:48)
[2021-03-17 05:47] LABS: BASOPHILS % (AUTO) 0 % (0-10); EOSINOPHILS # (AUTO) 0.3 10^3/uL (0.0-0.3); EOSINOPHILS % (AUTO) 2 % (0-10); HEMATOCRIT 52 % (35-52); HEMOGLOBIN 16.5 g/dL (11.5-16.0); LYMPHOCYTES # (AUTO) 5.9 10^3/uL (1.0-4.0); LYMPHOCYTES % (AUTO) 30 % (12-44); MEAN CORPUSCULAR HEMOGLOBIN 27 pg (25-34); MEAN CORPUSCULAR HGB CONC 32 g/dL (32-36); MEAN CORPUSCULAR VOLUME 85 fL (80-99); MEAN PLATELET VOLUME 11.3 fL (9.0-12.2); MONOCYTES # (AUTO) 0.9 10^3/uL (0.0-1.0); MONOCYTES % (AUTO) 5 % (0-12); NEUTROPHILS # (AUTO) 12.3 10^3/uL (1.8-7.8); NEUTROPHILS % (AUTO) 63 % (42-75); PLATELET COUNT 293 10^3/uL (130-400); WHITE BLOOD COUNT 19.5 10^3/uL (4.3-11.0)
[2021-03-17 06:00] LABS: CHLORIDE 98 MMOL/L (98-107); POTASSIUM 4.4 MMOL/L (3.6-5.0); SODIUM 135 MMOL/L (135-145)
[2021-03-17 06:01] LABS: CALCIUM 10.3 MG/DL (8.5-10.1)
[2021-03-17 06:02] LABS: GLUCOSE 157 MG/DL (70-105)
[2021-03-17 06:03] LABS: TOTAL PROTEIN 8.1 GM/DL (6.4-8.2)
[2021-03-17 06:04] LABS: BILIRUBIN,TOTAL 0.8 MG/DL (0.1-1.0); CARBON DIOXIDE 23 MMOL/L (21-32)
[2021-03-17 06:06] LABS: ALKALINE PHOSPHATASE 101 U/L (40-136); CREATININE SERUM 0.67 MG/DL (0.60-1.30); GFR ESTIMATED > 60
[2021-03-17 06:07] LABS: BUN/CREATININE RATIO 37
[2021-03-17] MEDS: inSUlin ASPART (NovoLOG) 1 UNIT/0.01 ML (CHARGE PER UNIT) SC SCH ×4 (06:08→21:41)
[2021-03-17 06:09] LABS: ALANINE AMINOTRANSFERASE 32 U/L (0-55)
[2021-03-17 06:12] LABS: BAND NEUTROPHILS 1 %; EOSINOPHILS % (MANUAL) 1 %; LYMPHOCYTES % (MANUAL) 28 %; MONOCYTES % (MANUAL) 4 %; NEUTROPHILS % (MANUAL) 66 %; RBC MORPH NORMAL
--- NOTE | 2021-03-17 06:17 | Individualized Plan of Care ---
Individualized Plan of Care Rehab Nursing IPOC Order Admission Date Mar 16, 2021 at 13:40 Current Orders Orders Admission Order(Inpt,Obs,Sdc) (03/16/21 11:42) Vital Signs: Per Unit Policy ( ,16,00 (03/16/21 11:42) Kenneth Pa (03/16/21 11:42) Sequential Compression Device .admit (03/16/21 11:42) Associate Software Development Engineer-Inpt Rehab Con (03/16/21 11:42) Rehab Nursing Orders-Ipoc (03/16/21 11:42) Physical Therapy Rehab Orders (03/16/21 11:42) Occupational Therapy Rehab Ord (03/16/21 11:42) Speech Therapy Rehab Orders (03/16/21 11:42) Cbc With Automated Diff (03/17/21 06:00) Comprehensive Metabolic Panel (03/17/21 06:00) Precautions (Aru) (03/16/21 11:42) Rehab-Intensity Of Therapy (03/16/21 11:42) Initiate Admission Nursing Pro .admission (03/16/21 11:42) Acetaminophen Tablet/Caplet (Tylenol T (03/16/21 11:45) Alprazolam Tablet (Xanax Tablet) (03/16/21 11:45) Calcium Carbonate Chew Tablet (Antacid C (03/16/21 11:45) Diphenhydramine Tablet (Benadryl Tablet) (03/16/21 11:45) Docusate Sodium Capsule (Colace Capsule) (03/16/21 21:00) Docusate Sodium Capsule (Colace Capsule) (03/16/21 11:45) Bisacodyl Suppository (Dulcolax Supposit (03/16/21 11:45) Lactulose Oral Solution (Enulose Oral So (03/16/21 11:45) Na Phos/Na Biphos Enema (Fleet Enema Binu (03/16/21 11:45) Guaifenesin/Codeine Syrup (Robitussin Ac (03/16/21 11:45) Hydrocodone/Apap 5/325 Tablet (Lortab 5 (03/16/21 11:45) Loperamide Tablet (Imodium Tablet) (03/16/21 11:45) Melatonin Tablet (Melatonin Tablet) (03/16/21 11:45) Polyethylene Glycol Powder Pkt (Miralax (03/16/21 21:00) Ondansetron Oral Dissolve Tab (Zofran (03/16/21 11:45) Senna S Tablet (Senokot S Tablet) (03/16/21 21:00) Code/Resuscitation (03/16/21 11:42) Initiate Admission Nursing Pro .admission (03/16/21 11:42) Admission Arrival Bed Request (03/16/21 13:56) Patient Visit (03/16/21 ) Pt Eval Moderate Complexity (03/16/21 ) Patient Visit (03/16/21 ) Functional Activities, Ea 15 (03/16/21 ) Ferrous Sulfate Tablet (Feosol Tablet) (03/17/21 09:00) Hydrocodone/Apap 10/325 Tablet (Lortab 1 (03/16/21 16:30) Insulin Determir 10 Ml Vial (Levemir 10 (03/16/21 21:00) Lisinopril Tablet (Zestril Tablet) (03/17/21 09:00) Metformin Tablet (Glucophage Tablet) (03/16/21 18:00) Metoprolol Succinate (Xl) Tab (Toprol Xl (03/17/21 09:00) (Nf) Dexamethasone (03/17/21 09:00) (Nf) Dexamethasone (03/16/21 16:30) (Nf) Duloxetine Hcl (03/16/21 21:00) (Nf) Empagliflozin (Jardiance) (03/17/21 09:00) (Nf) Omeprazole (03/17/21 09:00) Accucheck Achs ACHS (03/16/21 16:26) Insulin Aspart (Novolog) (Novolog (Charg (03/16/21 21:00) Cho 75g/M 0snack (21-2400 Paramjit) (03/16/21 Dinner) Insulin Determir (Per Unit) (Levemir (Pe (03/16/21 21:00) Pantoprazole Tablet (Protonix Tablet) (03/17/21 09:00) Duloxetine Capsule (Cymbalta Capsule) (03/16/21 21:00) Dexamethasone Tablet (Decadron Tablet) (03/16/21 18:00) Dexamethasone Tablet (Decadron Tablet) (03/17/21 08:00) Manual Differential (03/17/21 05:08) Patient Visit (03/17/21 ) Speech Sound Lang Comp (03/17/21 ) Treat. Speech/Lang/Voice (03/17/21 ) Patient Visit (03/17/21 ) Exercise Therap, Ea 15 Min (03/17/21 ) Functional Activities, Ea 15 (03/17/21 ) Patient Visit (03/17/21 ) Rehab Nursing Orders: Ongoing Assess. of Cognitive Status, Ongoing Assess. of Function Status, Bladder Management, Bladder Scan, Bladder Training, Bowel Management, Bowel Training, Disease Management & Educaiton, DVT Prophylaxis, Fall Prevention, Fluid/Electrolyte/Nutrition Mgmt, Infection Prevention, Medication Management & Education, Management of Risks & Complications, Management of Skin Intergrity, Nutrition Management, Pain Management, Patient/Family Support, Safety Management Intensity of Therapy to be met Patient to be seen: Min.3h per day/5 of 7d PT IPOC Problem List: Activity Tolerance, Functional Strength, Safety, Balance, Gait, Transfer, Bed Mobility Treatment Plan: Continue Plan of Care Bed Mobility, Education, Functional Activity Tracey, Functional Strength, Group Therapy, Gait, Safety, Therapeutic Exercise, Transfers Treatment Duration: Mar 31, 2021 Frequency: At least 5 of 7 days/Wk (IRF) Estimated Hrs Per Day: 1.5 hours per day OT IPOC Problems: Decreased Activ Tolerance, Dependent Transfers, Impaired Cognition, Impaired Funct Balance, Impaired I ADL's, Impaired Self-Care Skills, Restricted Funct UE ROM, Visual-Perceptual Deficit OT Treatment, Training and Edu: Yes Plan of Care: ADL Retraining, Functional Mobility, UE Funct Exercise/Act, Visual/Perceptual Retrain Treatment Duration: Mar 30, 2021 Frequency: At least 5 of 7 days/Wk (IRF) Estimated Hrs Per Day: 1.[address] IPOC Speech Therapy Treatment Plan: Modify Plan, See Comments Treatment Duration: Mar 17, 2021 Frequency: 2 times per week Estimated Hrs Per Day: .25 hour per day Associate Software Development Engineer/Case Mgmt Associate Software Development Engineer/Case Managemen: Discharge Planning Dietitian/Corrugator Supervisor Dietitian/Corrugator Supervisor to monitor nutritional status and make changes and/or recommendations as needed and work with speech pathology on dietary upgrades as the occur. Physician IPOC Medical Issues being managed closely and that require the 24 hour availability of a physician: Recent cerebral aneurysm clipping status post craniotomy with high sugars from steroid effect will require close monitoring for any decompensation Medical Issues: Bowel/Bladder Function, DVT Prophylaxis, Falls Precautions, Fluid/Electrolyte/Nutrition Balance, Infection Protection, Pain Management, Wound Care Brief Synthesis of Preadmission Screen, Post-Admission Evaluation, and Therapy Evaluations: PT and OT and speech therapy will focus on regaining independence and ambulatory skills with special focus to regain enough function to return home for independent living with Medical Prognosis: Good Anticipated Length of Stay: 10 days JERRI GARZA DO Mar 17, 2021 06:17
--- NOTE | 2021-03-17 06:17 | PM&R Progress Note ---
Subjective HPI/CC On Admission Date Seen by Provider: Mar 17, 2021 Time Seen by Provider: 11:00 Subjective/Events-last exam 03/17/2021: Patient doing really well Up in chair Still very weak and tired Zofran and Tylenol given for headache White count 19.5 from steroid effect Doing well Blood sugars managed with insulin Review of Systems General: Fatigue, Malaise Neurological: Weakness Objective Exam Vital Signs Vital Signs Date Time Temp Pulse Resp B/P (MAP) Pulse Ox O2 Delivery O2 Flow Rate FiO2 03/17/21 21:00 Room Air 03/17/21 20:00 36.0 49 16 104/53 (70) 90 Capillary Refill : General Appearance: No Apparent Distress, WD/WN, Chronically ill, Obese HEENT: PERRL/EOMI, Normal ENT Inspection, Pharynx Normal, Other (right sided peripheral vision deficit) Neck: Full Range of Motion, Normal Inspection, Non Tender, Supple, Carotid Bruit Respiratory: Chest Non Tender, Lungs Clear, Normal Breath Sounds, No Accessory Muscle Use, No Respiratory Distress Cardiovascular: Regular Rate, Rhythm, No Edema, No Gallop, No JVD, No Murmur, Normal Peripheral Pulses Gastrointestinal: Normal Bowel Sounds, No Organomegaly, No Pulsatile Mass, Non Tender, Soft Back: Normal Inspection, No CVA Tenderness, No Vertebral Tenderness Extremity: Normal Capillary Refill, Normal Inspection, Normal Range of Motion, Non Tender, No Calf Tenderness, No Pedal Edema Neurologic/Psychiatric: Alert, Oriented x3, No Motor/Sensory Deficits, private duty rn II- XII Norm as Tested, Abnormal Gait, Depressed Affect, Motor Weakness (generalize d) Skin: Normal Color, Warm/Dry Lymphatic: No Adenopathy Results/Procedures Lab Patient resulted labs reviewed. FIM Transfers Therapy Code Descriptions/Definitions Functional [place] Measure: 0=Not Assessed/NA 4=Minimal Assistance 1=Total Assistance 5=Supervision or Setup 2=Maximal Assistance 6=Modified [place] 3=Moderate Assistance 7=Complete IndependenceSCALE: Activities may be completed with or without assistive devices. 4-Syfeawizuj-rslkcim completes the activity by him/herself with no assistance from a helper. 5-Set-up or Clean-up Assistance-helper sets up or cleans up; patient completes activity. Tow assists only prior to or following the activity. 4-Supervision or Touching Assistance-helper provides verbal cues and/or touching/steadying and/or contact guard assistance as patient completes activity. Assistance may be provided throughout the activity or intermittently. 3-Partial/Moderate Assistance-helper does LESS THAN HALF the effort. Tow lifts, holds or supports trunk or limbs, but provides less than half the effort. 2-Substantial/Maximal Assistance-helper does MORE THAN HALF the effort. Tow lifts or holds trunk or limbs and provides more than half the effort. 8-Qlyyexnsi-kspszv does ALL the effort. Patient does none of the effort to complete the activity. Or, the assistance of 2 or more helpers is required for the patient to complete the activity. If activity was not attempted, code reason: 7-Patient Refused. 9-Not Applicable-not attempted and the patient did not perform the activity before the current illness, exacerbation or injury. 10-Not Attempted due to Environmental Limitations-(lack of equipment, weather restraints, etc.). 88-Not Attempted due to Medical Conditions or Safety Concerns. Roll Left to Right (QC): 4 Sit to Lying (QC): 4 Sit to Stand (QC): 4 (x 8 sets) Chair/Pew-bk-Mgepv Xfer(QC): 4 Car Transfer (QC): 3 (min assist to turn and with legs. ) Gait Training Does the Patient Walk?: Yes Distance: 150' x 2 Walk 10 feet (QC): 4 Walk 50 ft with 2 Turns(QC): 4 Walk 150 ft (QC): 4 Walking 10ft/uneven surface-QC: 4 Gait Assistive Device: FWW Wheelchair Training Wheel 50 ft with 2 turns (QC): 9 Wheel 150 ft (QC): 9 Stair Training Stair Training: Handrails/: 2 handrails #of Steps: 4 1 Step (curb) (QC): 3 4 Steps (QC): 3 12 Steps (QC): 9 Stairs: Pattern: Step to Balance Picking up an Object (QC): 6 (seated position) ADL-Treatment Eating (QC): 5 (per report) Oral Hygiene (QC): 7 Shower/Bathe Self (QC): 4 (CGA for balance and cues for safety. Pt. impulsive at times in shower. Will sit, stand multiple times.) Upper Body Dressing (QC): 4 Lower Body Dressing (QC): 4 (CGA/SBA in shower to doff/don pants.) On/Off Footwear (QC): 5 (Slipper socks and slippers.) Toileting Hygiene (QC): 4 (SBA in stance. Pt. is incontinent of bowel due to medication, but she is able to cleanse self with SBA for balance and safety.) Assessment/Plan Assessment and Plan Assess & Plan/Chief Complaint Assessment: s/p craniotomy for cerebral aneurysm clipping 03/09/21 Loss of right sided peripheral vision Loos of balance Impulsiveness Type 2 diabetes. Depression. Dyslipidemia. Cedillo's palsy. Thyroid nodule. Obesity, 30.0-34.9 kg/sq m. Iron deficiency anemia. GERD. Hypertension. Posttraumatic stress disorder. Fatty liver. Chronic fatigue syndrome Plan: IRF protocol Pain control Home meds Steroids 03/17/2021: Continue insulin Therapy protocol Tylenol for headache (1) Cerebral aneurysm (2) S/P craniotomy (3) Cerebral edema (4) Vision loss (5) Diabetes mellitus (6) Hypertension (7) BMI 31.0-31.9,adult (8) Anemia JERRI GARZA DO Mar 17, 2021 06:17
[2021-03-17 08:00] VITALS: BP 108/53
[2021-03-17] MEDS ORDERED: NON-FORMULARY MEDICATION 1 EA EA (Empagliflozin (Jardiance) 25 MG) PO SCH (09:00)
[2021-03-17] MEDS ORDERED: DEXAMETHASONE 2 MG PO SCH (09:00)
[2021-03-17] MEDS ORDERED: OMEPRAZOLE 10 MG PO SCH (09:00)
[2021-03-17] MEDS: meTOproloL SUCCINATE 50 MG (TOPROL XL) TAB PO SCH (10:27)
[2021-03-17] MEDS: DULoxetine 30 MG (CYMBALTA) CAP PO SCH ×2 (10:27→21:40)
[2021-03-17] MEDS: FERROUS SULF 325 MG (IRON) TAB PO SCH (10:27)
[2021-03-17] MEDS: ACETAMINOPHEN 325 MG TABLET PO PRN ×2 (10:27→19:51)
[2021-03-17] MEDS: PANTOPRAZOLE 20 MG TABLET (PROTONIX) PO SCH (10:27)
[2021-03-17] MEDS: lisINopril 10 MG (PRINIVIL) TABLET PO SCH (10:27)
[2021-03-17] MEDS: polyethylene glycoL POWDER 17 GM (MIRALAX) PACK PO SCH ×2 (10:28→21:00)
[2021-03-17] MEDS: DOCUSATE SODIUM 100 MG (COLACE) CAP PO SCH ×2 (10:28→21:40)
[2021-03-17] MEDS: SENNA W/DOCUSATE (SENOKOT S) TABLET PO SCH ×2 (10:28→21:40)
--- NOTE | 2021-03-17 10:30 | ST Cognitive Linguistic Eval ---
Speech Evaluation-General Medical Diagnosis Cerebral aneurysm Onset Date: Mar 16, 2021 Therapy Diagnosis Therapy Diagnosis: Cognitive-communication, Mild dysarthria Precautions Precautions/Isolations: Fall Prevention, Standard Precautions Referral Referring Physician: Dr. Toribio Medical History Pertinent Medical History: Arthritis, CVA, DM, GERD, HTN Reviewed History: Yes Social History Current Living Status: Spouse (family; several family members in her home) Speech PLF-Current Status Prior Level of Function Patient lived at home with her and other family members. She ws independent for daily needs at prior level. Subjective Patient was pleasant and cooperative with the cognitive assessment. Patient c/o double vision in the right eye. Language Eval: Auditory Comprehends Simple Yes/No Ques: Functional Indent/Objects Multiple [place]: Functional Ident/Pics in Multiple [place]: Functional Follows 1-Step Commands: Functional Follows Complex Directions: Mild Follows General Conversations: Mild Language Eval: Verbal Language Completes Spontaneous Greeting: Functional Produces Auto, Serial Info: Functional Imitates Simple Words/Phrases: Functional Word Finding: Mild Requests Basic Needs: Functional States Basic Personal Info: Functional Expresses Complex Ideas: Mild Objective Cognitive Domain Attention: WNL Memory: Mild Problem Solving: Functional Executive Functions: WNL Visuospatial Skills: Moderate Composite Severity Rating: Mild Clock Drawing Severity Rating: Mild Objective Formal/Standardized Tests [facility] Mental Status ([facility]) Results , Mild Neurocognitive Disorder Oral Motor/Speech Production Within Normal Limits, slight right side facial droop Impression Patient is a pleasant 65 y/o female who was admitted to the ARU who was found to have a cerebral aneurysm during work up for Cedillo's Palsy. Patient is s/p frontotemporal craniotomy, subarachnoid dissection. Patient currently has hea daches, light sensitivity, memory deficits and impulsivity. Patient will receive ST with focus on the cognitive function and oral/facial motor improvement. Speech Patient Assess Expression of Ideas/Wants: Exhibits (3) Understanding Verbal Content: Usually Understands (3) Brief Interview-Mental Status: Yes Repetition of Three Words: Three (3) Temporal Orientation: Year: Correct (3) Temporal Orientation: Month: Accurate within 5 days(2) Temporal Orientation: Day: Incorrect or No Answer(0) Recall : Wear to say "Sock": Yes,after cueing (1) Recall : Color: No, could not recall (0) Recall : Bed: No, could not recall (0) Memory/Recall Ability: Current season, That he or she is in a hsp/hsp unit Speech Short Term Goals Short Term Goals Short Term Goals 1) Patient will complete oral motor exercises and vital stim to improve facial droop at 90% or greater. 2) Patient will complete memory skills related to her daily needs at 90% or greater with minimal cues. 3) Patient will complete safety awareness skills related to her daily needs at 90% or greater with minimal cues. Speech Claims Adjustor Goals Claims Adjustor Goals Patient will improve cognitive function and oral motor skills for improved cognitive-communication in order to require minimal assist. Speech-Plan Patient/Family Goals Patient/Family Goals: Patient plans on returning to her home where she lives with her and other family members. Treatment Plan Speech Therapy Treatment Plan: Continue Plan of Care Treatment Duration: Mar 31, 2021 Frequency: 4 times per week (Patient will receive skilled ST 4-5x per week) Estimated Hrs Per Day: .5 hour per day Rehab Potential: Good Barriers to Learning: Patient's recent brain surgery and cognitive deficits Pt/Family Agrees to Plan: Yes Safety Risks/Education Teaching Recipient: Patient Teaching Methods: Discussion Response to Teaching: Verbalize Understanding Education Topics Provided: Safety within her room, communication of wants/needs Time Speech Therapy Time In: 09:00 Speech Therapy Time Out: 09:30 Total Billed Time: 30 Billed Treatment Time 1, GLO SCHAFFER [facility] ST Mar 17, 2021 10:30
[2021-03-17] MEDS: ONDANSETRON 4 MG (ZOFRAN) ORAL DISSOLVE TAB PO PRN (10:52)
--- NOTE | 2021-03-17 11:34 | Physical Therapy Daily Note ---
PT Daily Note-Current Subjective Patient agrees to PT. Patient c/o MARQUEZ and nausea. Patient has had Tylenol and is requesting Nausea medication. RN notified. Pain Numeric Pain Scale: 5-Moderate Pain Location: Right Location Body Site: Head Pain Description: Pressure Mental Status Patient Orientation: Person, Time, Situation Transfers SCALE: Activities may be completed with or without assistive devices. 9-Shrnhcwtxf-dxxdsgr completes the activity by him/herself with no assistance from a helper. 5-Set-up or Clean-up Assistance-helper sets up or cleans up; patient completes activity. [place] assists only prior to or following the activity. 4-Supervision or Touching Assistance-helper provides verbal cues and/or touching/steadying and/or contact guard assistance as patient completes activ ity. Assistance may be provided throughout the activity or intermittently. 3-Partial/Moderate Assistance-helper does LESS THAN HALF the effort. Julian lifts, holds or supports trunk or limbs, but provides less than half the effort. 2-Substantial/Maximal Assistance-helper does MORE THAN HALF the effort. [place] lifts or holds trunk or limbs and provides more than half the effort. 1-Lxmzazoxw-znvjpx does ALL the effort. Patient does none of the effort to complete the activity. Or, the assistance of 2 or more helpers is required for the patient to complete the activity. If activity was not attempted, code reason: 7-Patient Refused. 9-Not Applicable-not attempted and the patient did not perform the activity before the current illness, exacerbation or injury. 10-Not Attempted due to Environmental Limitations-(lack of equipment, weather restraints, etc.). 88-Not Attempted due to Medical Conditions or Safety Concerns. Lying to Sitting/Side of Bed(Q: 6 Sit to Stand (QC): 4 (SBA) Chair/Qrx-ir-Hecxf Xfer(QC): 4 (SBA) Toilet Transfer (QC): 4 (SBA) Gait Training Does the Patient Walk?: Yes Distance: 300' x 2/150' x 1 Walk 10 feet (QC): 4 (SBA) Walk 50 ft with 2 Turns(QC): 4 (SBA) Walk 150 ft (QC): 4 (SBA) Gait Assistive Device: FWW safe and functional with no deviation Exercises Supine Ex: Ankle pumps, Quad Set, Heel Slides, Straight leg raise, Hip abd/add Supine Reps: 12 Seated Therapy Exercises: Ankle pumps, Long arc quads, Hip flexion Seated Reps: 15 Standing: Mini squats (15) NuStep Minutes: 10 NuStep Workload: 2 (to improve functional strength and mobility.) Assessment Patient tolerated treatment well and is progressing with treatment plan. PT Short Term Goals Short Term Goals Time Frame: Mar 23, 2021 Sit to lyin Lying to sitting on side of be: 6 Sit to stand: 5 Chair/bne-pe-mrggp transfer: 5 Walk 150 feet: 4 PT Intermediate Goals Auto Seat Cover Installer Goals PT Auto Seat Cover Installer Goals Time Frame: Mar 31, 2021 Roll Left & Right (QC): 6 Sit to Lying (QC): 6 Lying-Sitting on Side/Bed(QC): 6 Sit to Stand (QC): 6 Chair/Pcc-xf-Zhxfp Xfer(QC): 6 Toilet Transfer (QC): 6 Car Transfer (QC): 6 Does the Patient Walk: Yes Walk 10 feet (QC): 6 Walk 50ft with 2 Turns (QC): 6 Walk 150 ft (QC): 6 Walking 10ft on Uneven Surface: 6 1 Step (curb) (QC): 6 4 Steps (QC): 6 12 Steps (QC): 4 Picking up an Object (QC): 5 Does the Pt use WC or Scooter?: No Wheel 50 feet with 2 turns (QC: 9 Wheel 150 feet: 9 PT Plan Treatment/Plan Treatment Plan: Continue Plan of Care Treatment Plan: Bed Mobility, Education, Functional Activity Tracey, Functional Strength, Group Therapy, Gait, Safety, Therapeutic Exercise, Transfers Treatment Duration: Mar 31, 2021 Frequency: At least 5 of 7 days/Wk (IRF) Estimated Hrs Per Day: 1.5 hours per day Patient and/or Family Agrees t: Yes Time/GCodes Time In: 1045 Time Out: 1130 Total Billed Treatment Time: 45 Total Billed Treatment 1 visit EX x 2 25 min FA 20 min WILD GOLDBERG PT Mar 17, 2021 11:34
--- NOTE | 2021-03-17 11:55 | Occupational Ther Daily Note ---
OT Current Status-Daily Note Subjective Pt seen in room, up in bed, agreeable to OT. No pain mentioned initially but she reported headache at end of tx. Nursing notified Appearance Alert, cooperative ADL-Treatment Pt did not want to shower or change clothes today but she did want to put on a bra and brush her teeth. A little impulsive in preparation for ADLs. Up to EOB without help. Pt took off shirt, donned bra and put shirt back on with only setup. Brushed teeth with setup, sitting EOB. Able to manage cap on toothpaste, squeezing toothpaste without help. Pt reported double vision looking to the left and with objects more above and below each other than side by side. After looking at objects in different visual areas, she did not have additional double vision. Therapy Code Descriptions/Definitions Functional [place] Measure: 0=Not Assessed/NA 4=Minimal Assistance 1=Total Assistance 5=Supervision or Setup 2=Maximal Assistance 6=Modified [place] 3=Moderate Assistance 7=Complete IndependenceSCALE: Activities may be completed with or without assistive devices. 9-Qqdmzpoats-srpmlyb completes the activity by him/herself with no assistance from a helper. 5-Set-up or Clean-up Assistance-helper sets up or cleans up; patient completes activity. [place] assists only prior to or following the activity. 4-Supervision or Touching Assistance-helper provides verbal cues and/or touching/steadying and/or contact guard assistance as patient completes activity. Assistance may be provided throughout the activity or intermittently. 3-Partial/Moderate Assistance-helper does LESS THAN HALF the effort. [place] lifts, holds or supports trunk or limbs, but provides less than half the effort. 2-Substantial/Maximal Assistance-helper does MORE THAN HALF the effort. [place] lifts or holds trunk or limbs and provides more than half the effort. 3-Xnqrhdrgu-pvkmrf does ALL the effort. Patient does none of the effort to complete the activity. Or, the assistance of 2 or more helpers is required for the patient to complete the activity. If activity was not attempted, code reason: 7-Patient Refused. 9-Not Applicable-not attempted and the patient did not perform the activity before the current illness, exacerbation or injury. 10-Not Attempted due to Environmental Limitations-(lack of equipment, weather restraints, etc.). 88-Not Attempted due to Medical Conditions or Safety Concerns. Oral Hygiene (QC): 5 (setup) Upper Body Dressing (QC): 5 (setup) Other Treatment Pt got up from bed with cue to push up. Walked with CGA, FWW to gym and able to get into chair with cues to reach back. Pt completed matching activity which required looking in multiple directions, surprising herself with how many matches she was able to make without assistance. She said that she did not notice any double vision during activity but did need to take a couple breaks with closed eyes due to fatigue. She walked back to her room with CGA, FWW and no LOB. Pt left up in bed, 4 rails up with her OK, waiting for meds. Education OT Patient Education: Disease process, Progress toward Goal/Update tx plan, Purpose of tx/functional activities Teaching Recipient: Patient Teaching Methods: Discussion Response to Teaching: Verbalize Understanding, Return Demonstration, Reinforcement Needed OT Beater Out Goals Detention Goals Time Frame: Mar 30, 2021 Eating (QC): 6 Oral Hygiene (QC): 6 Toileting Hygiene (QC): 6 Shower/Bathe Self (QC): 6 Upper Body Dressing (QC): 6 Lower Body Dressing (QC): 6 On/Off Footwear (QC): 6 Additional Goals: 1-Demonstrate ADL Tasks, 2-Verbalize Understanding, 3- ImproveStrength/Tracey 1=Demonstrate adherence to instructed precautions during ADL tasks. 2=Patient will verbalize/demonstrate understanding of assistive devices/modifications for ADL. 3=Patient will improve strength/tolerance for activity to enable patient to perform ADL's. OT Education/Plan Discharge Recommendations Plan/Recommendations: Continue POC Treatment Plan/Plan of Care Patient would benefit from OT for education, treatment and training to promote independence in ADL's, mobility, safety and/or upper extremity function for ADL's. Plan of Care: ADL Retraining, Functional Mobility, UE Funct Exercise/Act, Visual/Perceptual Retrain Treatment Duration: Mar 30, 2021 Frequency: At least 5 of 7 days/Wk (IRF) Estimated Hrs Per Day: 1.5 hours per day Agreement: Yes Rehab Potential: Good Time/GCodes Start Time: 09:30 Stop Time: 10:15 Total Time Billed (hr/min): 45 Billed Treatment Time visit, ADL 15 minutes, neuromotor 30 minutes FALLNO YI OT Mar 17, 2021 11:55
[2021-03-17] MEDS ORDERED: ATOR40TA70 PO (12:16)
--- NOTE | 2021-03-17 14:31 | Therapy Group Daily Note ---
Therapy Daily Group Note Patient Education Topic Home Safety Exercises Fine Motor, UE Exercise Session Ratio (pt:therapist): 4:1 Goal of Session: Home Safety Strategies Goal Met for this Session: Yes Pt Benefit of Group: Contributions to Others, F/U Use of Strategies @Home, Increased Functional Safety, Increased Functional Strength, Improved Cognition, Recognition of Peers, Socialization Other/Notes Pt ambulated using FWW to [facility] for OT/PT group. Group consisted of introductions (name, place, hobby), socialization, seated gross/fine motor exercises and environmental safety education. Pt introduced self appropriately and actively listened to peers. Pt demonstrated knowledge of educational topic by giving own examples and gesturing understanding. Pt able to complete fine motor and gross motor tasks without difficulty. After session, pt lying in bed with call light/phone in reach. All needs met in room. Start Time: 13:00 Stop Time: 14:00 Total Billed Treatment Time: 60 Total Billed Treatment 1-[facility] CECILY EDMONDS Mar 17, 2021 14:31
[2021-03-17] MEDS: metFORMIN 500 MG (GLUCOPHAGE) TAB PO SCH (17:47)
[2021-03-17 20:00] VITALS: BP 104/53
[2021-03-18] MEDS: inSUlin ASPART (NovoLOG) 1 UNIT/0.01 ML (CHARGE PER UNIT) SC SCH ×4 (06:12→21:00)
[2021-03-18] MEDS: ACETAMINOPHEN 325 MG TABLET PO PRN ×2 (06:12→17:28)
--- NOTE | 2021-03-18 06:35 | PM&R Progress Note ---
Subjective HPI/CC On Admission Date Seen by Provider: Mar 18, 2021 Time Seen by Provider: 12:00 Subjective/Events-last exam 03/18/2021: Patient doing pretty well Had a small bowel movement today Sugar of 228 received sliding scale insulin regimen Steroids increasing sugar Check meds and labs 03/17/2021: Patient doing really well Up in chair Still very weak and tired Zofran and Tylenol given for headache White count 19.5 from steroid effect Doing well Blood sugars managed with insulin Review of Systems General: Fatigue, Malaise Neurological: Weakness, Incoordination Objective Exam Vital Signs Vital Signs Date Time Temp Pulse Resp B/P (MAP) Pulse Ox O2 Delivery O2 Flow Rate FiO2 03/18/21 21:47 Room Air 03/18/21 20:00 36.4 73 18 109/55 (73) 93 Capillary Refill : General Appearance: No Apparent Distress, WD/WN, Chronically ill, Obese HEENT: PERRL/EOMI, Normal ENT Inspection, Pharynx Normal, Other (right sided peripheral vision deficit) Neck: Full Range of Motion, Normal Inspection, Non Tender, Supple, Carotid Bruit Respiratory: Chest Non Tender, Lungs Clear, Normal Breath Sounds, No Accessory Muscle Use, No Respiratory Distress Cardiovascular: Regular Rate, Rhythm, No Edema, No Gallop, No JVD, No Murmur, Normal Peripheral Pulses Gastrointestinal: Normal Bowel Sounds, No Organomegaly, No Pulsatile Mass, Non Tender, Soft Back: Normal Inspection, No CVA Tenderness, No Vertebral Tenderness Extremity: Normal Capillary Refill, Normal Inspection, Normal Range of Motion, Non Tender, No Calf Tenderness, No Pedal Edema Neurologic/Psychiatric: Alert, Oriented x3, No Motor/Sensory Deficits, refueler II- XII Norm as Tested, Abnormal Gait, Depressed Affect, Motor Weakness (generalized) Skin: Normal Color, Warm/Dry Lymphatic: No Adenopathy Results/Procedures Lab Patient resulted labs reviewed. FIM Transfers Therapy Code Descriptions/Definitions Functional [place] Measure: 0=Not Assessed/NA 4=Minimal Assistance 1=Total Assistance 5=Supervision or Setup 2=Maximal Assistance 6=Modified [place] 3=Moderate Assistance 7=Complete IndependenceSCALE: Activities may be completed with or without assistive devices. 4-Laorastvyr-wkkbrij completes the activity by him/herself with no assistance from a helper. 5-Set-up or Clean-up Assistance-helper sets up or cleans up; patient completes activity. [place] assists only prior to or following the activity. 4-Supervision or Touching Assistance-helper provides verbal cues and/or touching/steadying and/or contact guard assistance as patient completes activity. Assistance may be provided throughout the activity or intermittently. 3-Partial/Moderate Assistance-helper does LESS THAN HALF the effort. [place] lifts, holds or supports trunk or limbs, but provides less than half the effort. 2-Substantial/Maximal Assistance-helper does MORE THAN HALF the effort. [place] lifts or holds trunk or limbs and provides more than half the effort. 0-Jphwajstw-kvgoeu does ALL the effort. Patient does none of the effort to complete the activity. Or, the assistance of 2 or more helpers is required for the patient to complete the activity. If activity was not attempted, code reason: 7-Patient Refused. 9-Not Applicable-not attempted and the patient did not perform the activity before the current illness, exacerbation or injury. 10-Not Attempted due to Environmental Limitations-(lack of equipment, weather restraints, etc.). 88-Not Attempted due to Medical Conditions or Safety Concerns. Roll Left to Right (QC): 4 Sit to Lying (QC): 4 Sit to Stand (QC): 4 (SBA) Chair/Uau-qs-Fcbfa Xfer(QC): 4 (SBA) Car Transfer (QC): 3 (min assist to turn and with legs. ) Gait Training Does the Patient Walk?: Yes Distance: 300' x 2/150' x 1 Walk 10 feet (QC): 4 (SBA) Walk 50 ft with 2 Turns(QC): 4 (SBA) Walk 150 ft (QC): 4 (SBA) Walking 10ft/uneven surface-QC: 4 Gait Assistive Device: FWW Wheelchair Training Wheel 50 ft with 2 turns (QC): 9 Wheel 150 ft (QC): 9 Stair Training Stair Training: Handrails/: 2 handrails #of Steps: 4 1 Step (curb) (QC): 3 4 Steps (QC): 3 12 Steps (QC): 9 Stairs: Pattern: Step to Balance Picking up an Object (QC): 6 (seated position) ADL-Treatment Eating (QC): 5 (per report) Oral Hygiene (QC): 5 (setup) Shower/Bathe Self (QC): 4 (CGA for balance and cues for safety. Pt. impulsive at times in shower. Will sit, stand multiple times.) Upper Body Dressing (QC): 5 (setup) Lower Body Dressing (QC): 4 (CGA/SBA in shower to doff/don pants.) On/Off Footwear (QC): 5 (Slipper socks and slippers.) Toileting Hygiene (QC): 4 (SBA in stance. Pt. is incontinent of bowel due to medication, but she is able to cleanse self with SBA for balance and safety.) Assessment/Plan Assessment and Plan Assess & Plan/Chief Complaint Assessment: s/p craniotomy for cerebral aneurysm clipping 03/09/21 Loss of right sided peripheral vision Loos of balance Impulsiveness Type 2 diabetes. Depression. Dyslipidemia. Cedillo's palsy. Thyroid nodule. Obesity, 30.0-34.9 kg/sq m. Iron deficiency anemia. GERD. Hypertension. Posttraumatic stress disorder. Fatty liver. Chronic fatigue syndrome Plan: IRF protocol Pain control Home meds Steroids 03/17/2021: Continue insulin Therapy protocol Tylenol for headache 03/18/2021: Participating in therapy Blood sugar management Steroids for cerebral edema from neurosurgery (1) Cerebral aneurysm (2) S/P craniotomy (3) Cerebral edema (4) Vision loss (5) Diabetes mellitus (6) Hypertension (7) BMI 31.0-31.9,adult (8) Anemia JERRI GARZA DO Mar 18, 2021 06:35
[2021-03-18 07:29] VITALS: BP 97/53
--- NOTE | 2021-03-18 08:49 | Physical Therapy Daily Note ---
PT Daily Note-Current Subjective Pt laying Supine in bed after finishing breakfast upon arrival. Nursing present and taking vitals. Pt agrees to PT. Pain Location: Right, Incisional, Anterior Location Body Site: Head Pain Description: Ache Comment: Pt reports slight headache but doesn't rate. Pain med given. Mental Status Patient Orientation: Person, Confused, Time Transfers SCALE: Activities may be completed with or without assistive devices. 0-Reqiiubved-xmwdhrl completes the activity by him/herself with no assistance from a helper. 5-Set-up or Clean-up Assistance-helper sets up or cleans up; patient completes activity. [place] assists only prior to or following the activity. 4-Supervision or Touching Assistance-helper provides verbal cues and/or touching/steadying and/or contact guard assistance as patient completes activity. Assistance may be provided throughout the activity or intermittently. 3-Partial/Moderate Assistance-helper does LESS THAN HALF the effort. [place] lifts, holds or supports trunk or limbs, but provides less than half the effort. 2-Substantial/Maximal Assistance-helper does MORE THAN HALF the effort. [place] lifts or holds trunk or limbs and provides more than half the effort. 9-Mlndmbcom-adjfkm does ALL the effort. Patient does none of the effort to compl ete the activity. Or, the assistance of 2 or more helpers is required for the patient to complete the activity. If activity was not attempted, code reason: 7-Patient Refused. 9-Not Applicable-not attempted and the patient did not perform the activity before the current illness, exacerbation or injury. 10-Not Attempted due to Environmental Limitations-(lack of equipment, weather restraints, etc.). 88-Not Attempted due to Medical Conditions or Safety Concerns. Sit to Stand (QC): 5 Toilet Transfer (QC): 4 Weight Bearing Full Weight Bearing Full Weight Bearing Gait Training Does the Patient Walk?: Yes Distance: 225 Walk 10 feet (QC): 4 Walk 50 ft with 2 Turns(QC): 4 Walk 150 ft (QC): 4 Gait Persons Needed: 1 Gait Assistive Device: FWW Treatments Tf to standing and uses BR. Pt amb. in hallway before returning to room. Pt resting in bed at end of tx with all needs met, call light in hand. Assessment Current Status: Good Progress Pt is improving with transfers and amb. but still has moments of "fogginess". PT Short Term Goals Short Term Goals Time Frame: Mar 23, 2021 Sit to lyin Lying to sitting on side of be: 6 Sit to stand: 5 Chair/wol-qo-dyzti transfer: 5 Walk 150 feet: 4 PT Machine Deicer Element Winder Goals Machine Deicer Element Winder Goals PT Group Home Goals Time Frame: Mar 31, 2021 Roll Left & Right (QC): 6 Sit to Lying (QC): 6 Lying-Sitting on Side/Bed(QC): 6 Sit to Stand (QC): 6 Chair/Pkw-qz-Gtmlv Xfer(QC): 6 Toilet Transfer (QC): 6 Car Transfer (QC): 6 Does the Patient Walk: Yes Walk 10 feet (QC): 6 Walk 50ft with 2 Turns (QC): 6 Walk 150 ft (QC): 6 Walking 10ft on Uneven Surface: 6 1 Step (curb) (QC): 6 4 Steps (QC): 6 12 Steps (QC): 4 Picking up an Object (QC): 5 Does the Pt use WC or Scooter?: No Wheel 50 feet with 2 turns (QC: 9 Wheel 150 feet: 9 PT Plan Treatment/Plan Treatment Plan: Continue Plan of Care Treatment Plan: Bed Mobility, Education, Functional Activity Tracey, Functional Strength, Group Therapy, Gait, Safety, Therapeutic Exercise, Transfers Treatment Duration: Mar 31, 2021 Frequency: At least 5 of 7 days/Wk (IRF) Estimated Hrs Per Day: 1.5 hours per day Patient and/or Family Agrees t: Yes Safety Risks/Education Patient Education: Gait Training, Correct Positioning, Safety Issues Teaching Recipient: Patient Teaching Methods: Discussion Response to Teaching: Verbalize Understanding Time/GCodes Time In: 735 Time Out: 755 Total Billed Treatment Time: 20 Total Billed Treatment 1, GT (20m) JESSENIA GUERRA UX LEAD Mar 18, 2021 08:49
[2021-03-18] MEDS: FERROUS SULF 325 MG (IRON) TAB PO SCH (09:01)
[2021-03-18] MEDS: DULoxetine 30 MG (CYMBALTA) CAP PO SCH ×2 (09:01→20:47)
[2021-03-18] MEDS: PANTOPRAZOLE 20 MG TABLET (PROTONIX) PO SCH (09:01)
[2021-03-18] MEDS: polyethylene glycoL POWDER 17 GM (MIRALAX) PACK PO SCH ×2 (09:01→21:00)
[2021-03-18] MEDS: lisINopril 10 MG (PRINIVIL) TABLET PO SCH (09:01)
[2021-03-18] MEDS: DOCUSATE SODIUM 100 MG (COLACE) CAP PO SCH ×2 (09:01→21:00)
[2021-03-18] MEDS: SENNA W/DOCUSATE (SENOKOT S) TABLET PO SCH ×2 (09:01→21:00)
[2021-03-18] MEDS: meTOproloL SUCCINATE 50 MG (TOPROL XL) TAB PO SCH (09:01)
[2021-03-18] MEDS: metFORMIN 500 MG (GLUCOPHAGE) TAB PO SCH (17:23)
[2021-03-18 20:00] VITALS: BP 109/55
[2021-03-18] MEDS: ONDANSETRON 4 MG (ZOFRAN) ORAL DISSOLVE TAB PO PRN (20:47)
[2021-03-19] MEDS: ACETAMINOPHEN 325 MG TABLET PO PRN ×3 (06:08→17:20)
[2021-03-19] MEDS: inSUlin ASPART (NovoLOG) 1 UNIT/0.01 ML (CHARGE PER UNIT) SC SCH ×4 (06:09→21:30)
[2021-03-19 07:19] VITALS: BP 111/61
[2021-03-19 09:12] VITALS: BP 120/62
[2021-03-19] MEDS: meTOproloL SUCCINATE 50 MG (TOPROL XL) TAB PO SCH (09:15)
[2021-03-19] MEDS: DOCUSATE SODIUM 100 MG (COLACE) CAP PO SCH ×3 (09:15→21:34)
[2021-03-19] MEDS: lisINopril 10 MG (PRINIVIL) TABLET PO SCH (09:15)
[2021-03-19] MEDS: PANTOPRAZOLE 20 MG TABLET (PROTONIX) PO SCH (09:15)
[2021-03-19] MEDS: SENNA W/DOCUSATE (SENOKOT S) TABLET PO SCH ×3 (09:15→21:35)
[2021-03-19] MEDS: DULoxetine 30 MG (CYMBALTA) CAP PO SCH ×2 (09:15→21:30)
[2021-03-19] MEDS: FERROUS SULF 325 MG (IRON) TAB PO SCH (09:15)
[2021-03-19] MEDS: polyethylene glycoL POWDER 17 GM (MIRALAX) PACK PO SCH ×2 (09:16→21:34)
--- NOTE | 2021-03-19 09:44 | PM&R Progress Note ---
Subjective HPI/CC On Admission Date Seen by Provider: Mar 19, 2021 Time Seen by Provider: 10:45 Subjective/Events-last exam 03/19/2021: Patient in good spirits today Bowels moved yesterday Tylenol given for the headache Air pocket in the incision at times which with an open craniotomy is not unusual No drainage Monitor closely 03/18/2021: Patient doing pretty well Had a small bowel movement today Sugar of 228 received sliding scale insulin regimen Steroids increasing sugar Check meds and labs 03/17/2021: Patient doing really well Up in chair Still very weak and tired Zofran and Tylenol given for headache White count 19.5 from steroid effect Doing well Blood sugars managed with insulin Review of Systems General: Fatigue, Malaise Neurological: Weakness Objective Exam Vital Signs Vital Signs Date Time Temp Pulse Resp B/P (MAP) Pulse Ox O2 Delivery O2 Flow Rate FiO2 03/19/21 09:12 64 18 120/62 (81) 95 Room Air 03/19/21 07:19 36.3 Capillary Refill : General Appearance: No Apparent Distress, WD/WN, Chronically ill, Obese HEENT: PERRL/EOMI, Normal ENT Inspection, Pharynx Normal, Other (right sided peripheral vision deficit) Neck: Full Range of Motion, Normal Inspection, Non Tender, Supple, Carotid Bruit Respiratory: Chest Non Tender, Lungs Clear, Normal Breath Sounds, No Accessory Muscle Use, No Respiratory Distress Cardiovascular: Regular Rate, Rhythm, No Edema, No Gallop, No JVD, No Murmur, Normal Peripheral Pulses Gastrointestinal: Normal Bowel Sounds, No Organomegaly, No Pulsatile Mass, Non Tender, Soft Back: Normal Inspection, No CVA Tenderness, No Vertebral Tenderness Extremity: Normal Capillary Refill, Normal Inspection, Normal Range of Motion, Non Tender, No Calf Tenderness, No Pedal Edema Neurologic/Psychiatric: Alert, Oriented x3, No Motor/Sensory Deficits, automobile technician II- XII Norm as Tested, Abnormal Gait, Depressed Affect, Motor Weakness (generalized) Skin: Normal Color, Warm/Dry Lymphatic: No Adenopathy Results/Procedures Lab Patient resulted labs reviewed. FIM Transfers Therapy Code Descriptions/Definitions Functional [place] Measure: 0=Not Assessed/NA 4=Minimal Assistance 1=Total Assistance 5=Supervision or Setup 2=Maximal Assistance 6=Modified [place] 3=Moderate Assistance 7=Complete IndependenceSCALE: Activities may be completed with or without assistive devices. 4-Neidhirypy-mmjuwcd completes the activity by him/herself with no assistance from a helper. 5-Set-up or Clean-up Assistance-helper sets up or cleans up; patient completes activity. [place] assists only prior to or following the activity. 4-Supervision or Touching Assistance-helper provides verbal cues and/or touching/steadying and/or contact guard assistance as patient completes act ivity. Assistance may be provided throughout the activity or intermittently. 3-Partial/Moderate Assistance-helper does LESS THAN HALF the effort. [place] lifts, holds or supports trunk or limbs, but provides less than half the effort. 2-Substantial/Maximal Assistance-helper does MORE THAN HALF the effort. [place] lifts or holds trunk or limbs and provides more than half the effort. 7-Qftelijzs-ioundq does ALL the effort. Patient does none of the effort to complete the activity. Or, the assistance of 2 or more helpers is required for the patient to complete the activity. If activity was not attempted, code reason: 7-Patient Refused. 9-Not Applicable-not attempted and the patient did not perform the activity before the current illness, exacerbation or injury. 10-Not Attempted due to Environmental Limitations-(lack of equipment, weather restraints, etc.). 88-Not Attempted due to Medical Conditions or Safety Concerns. Roll Left to Right (QC): 4 Sit to Lying (QC): 4 Sit to Stand (QC): 5 Chair/Hff-ep-Kpbjn Xfer(QC): 4 (SBA) Car Transfer (QC): 3 (min assist to turn and with legs. ) Gait Training Does the Patient Walk?: Yes Distance: 225 Walk 10 feet (QC): 4 Walk 50 ft with 2 Turns(QC): 4 Walk 150 ft (QC): 4 Walking 10ft/uneven surface-QC: 4 Gait Persons Needed: 1 Gait Assistive Device: FWW Wheelchair Training Wheel 50 ft with 2 turns (QC): 9 Wheel 150 ft (QC): 9 Stair Training Stair Training: Handrails/: 2 handrails #of Steps: 4 1 Step (curb) (QC): 3 4 Steps (QC): 3 12 Steps (QC): 9 Stairs: Pattern: Step to Balance Picking up an Object (QC): 6 (seated position) ADL-Treatment Eating (QC): 5 (per report) Oral Hygiene (QC): 5 (setup) Shower/Bathe Self (QC): 4 (CGA for balance and cues for safety. Pt. impulsive at times in shower. Will sit, stand multiple times.) Upper Body Dressing (QC): 5 (setup) Lower Body Dressing (QC): 4 (CGA/SBA in shower to doff/don pants.) On/Off Footwear (QC): 5 (Slipper socks and slippers.) Toileting Hygiene (QC): 4 (SBA in stance. Pt. is incontinent of bowel due to medication, but she is able to cleanse self with SBA for balance and safety.) Assessment/Plan Assessment and Plan Assess & Plan/Chief Complaint Assessment: s/p craniotomy for cerebral aneurysm clipping 03/09/21 Loss of right sided peripheral vision Loos of balance Impulsiveness Type 2 diabetes. Depression. Dyslipidemia. Cedillo's palsy. Thyroid nodule. Obesity, 30.0-34.9 kg/sq m. Iron deficiency anemia. GERD. Hypertension. Posttraumatic stress disorder. Fatty liver. Chronic fatigue syndrome Plan: IRF protocol Pain control Home meds Steroids 03/17/2021: Continue insulin Therapy protocol Tylenol for headache 03/18/2021: Participating in therapy Blood sugar management Steroids for cerebral edema from neurosurgery 03/19/2021: Maintain Tylenol for headache Check labs in the morning Blood sugar management with steroids (1) Cerebral aneurysm (2) S/P craniotomy (3) Cerebral edema (4) Vision loss (5) Diabetes mellitus (6) Hypertension (7) BMI 31.0-31.9,adult (8) Anemia JERRI GARZA DO Mar 19, 2021 09:44
[2021-03-19] MEDS: metFORMIN 500 MG (GLUCOPHAGE) TAB PO SCH (17:20)
[2021-03-19 20:00] VITALS: BP 96/48
[2021-03-20 05:38] LABS: BASOPHILS % (AUTO) 0 % (0-10); EOSINOPHILS # (AUTO) 0.5 10^3/uL (0.0-0.3); EOSINOPHILS % (AUTO) 3 % (0-10); HEMATOCRIT 46 % (35-52); HEMOGLOBIN 14.5 g/dL (11.5-16.0); LYMPHOCYTES % (AUTO) 44 % (12-44); MEAN CORPUSCULAR HEMOGLOBIN 27 pg (25-34); MEAN CORPUSCULAR HGB CONC 32 g/dL (32-36); MEAN CORPUSCULAR VOLUME 84 fL (80-99); MEAN PLATELET VOLUME 11.6 fL (9.0-12.2); MONOCYTES # (AUTO) 0.8 10^3/uL (0.0-1.0); MONOCYTES % (AUTO) 5 % (0-12); NEUTROPHILS # (AUTO) 8.7 10^3/uL (1.8-7.8); NEUTROPHILS % (AUTO) 48 % (42-75); PLATELET COUNT 247 10^3/uL (130-400)
[2021-03-20] MEDS: inSUlin ASPART (NovoLOG) 1 UNIT/0.01 ML (CHARGE PER UNIT) SC SCH ×4 (06:00→20:43)
[2021-03-20 06:10] LABS: ALBUMIN 3.6 GM/DL (3.2-4.5); CHLORIDE 103 MMOL/L (98-107); SODIUM 136 MMOL/L (135-145)
[2021-03-20 06:11] LABS: CALCIUM 9.9 MG/DL (8.5-10.1)
[2021-03-20 06:12] LABS: GLUCOSE 134 MG/DL (70-105); TOTAL PROTEIN 6.9 GM/DL (6.4-8.2)
[2021-03-20 06:13] LABS: CARBON DIOXIDE 23 MMOL/L (21-32)
[2021-03-20 06:14] LABS: BILIRUBIN,TOTAL 0.4 MG/DL (0.1-1.0)
[2021-03-20 06:16] LABS: ALKALINE PHOSPHATASE 82 U/L (40-136); CREATININE SERUM 0.64 MG/DL (0.60-1.30); GFR ESTIMATED > 60
[2021-03-20 06:17] LABS: BUN/CREATININE RATIO 36
[2021-03-20 06:19] LABS: ALANINE AMINOTRANSFERASE 32 U/L (0-55)
--- NOTE | 2021-03-20 06:36 | PM&R Progress Note ---
Subjective HPI/CC On Admission Date Seen by Provider: Mar 20, 2021 Time Seen by Provider: 10:45 Subjective/Events-last exam 03/20/2021: Pt doing pretty well Heart rate is bradycardic on Metoprolol so will hold it if it is less than 60 WBC is 18,000 from steroids 03/19/2021: Patient in good spirits today Bowels moved yesterday Tylenol given for the headache Air pocket in the incision at times which with an open craniotomy is not unusual No drainage Monitor closely 03/18/2021: Patient doing pretty well Had a small bowel movement today Sugar of 228 received sliding scale insulin regimen Steroids increasing sugar Check meds and labs 03/17/2021: Patient doing really well Up in chair Still very weak and tired Zofran and Tylenol given for headache White count 19.5 from steroid effect Doing well Blood sugars managed with insulin Review of Systems General: Fatigue, Malaise Neurological: Weakness, Incoordination Objective Exam Vital Signs Vital Signs Date Time Temp Pulse Resp B/P (MAP) Pulse Ox O2 Delivery O2 Flow Rate FiO2 03/20/21 20:50 93 Room Air 03/20/21 20:00 37.4 54 18 94/53 (67) 03/19/21 21:30 93 Capillary Refill : General Appearance: No Apparent Distress, WD/WN, Chronically ill, Obese HEENT: PERRL/EOMI, Normal ENT Inspection, Pharynx Normal, Other (right sided peripheral vision deficit) Neck: Full Range of Motion, Normal Inspection, Non Tender, Supple, Carotid Bruit Respiratory: Chest Non Tender, Lungs Clear, Normal Breath Sounds, No Accessory Muscle Use, No Respiratory Distress Cardiovascular: Regular Rate, Rhythm, No Edema, No Gallop, No JVD, No Murmur, Normal Peripheral Pulses Gastrointestinal: Normal Bowel Sounds, No Organomegaly, No Pulsatile Mass, Non Tender, Soft Back: Normal Inspection, No CVA Tenderness, No Vertebral Tenderness Extremity: Normal Capillary Refill, Normal Inspection, Normal Range of Motion, Non Tender, No Calf Tenderness, No Pedal Edema Neurologic/Psychiatric: Alert, Oriented x3, No Motor/Sensory Deficits, personalized living assistant II- XII Norm as Tested, Abnormal Gait, Depressed Affect, Motor Weakness (generalized) Skin: Normal Color, Warm/Dry Lymphatic: No Adenopathy Results/Procedures Lab Patient resulted labs reviewed. FIM Transfers Therapy Code Descriptions/Definitions Functional [place] Measure: 0=Not Assessed/NA 4=Minimal Assistance 1=Total Assistance 5=Supervision or Setup 2=Maximal Assistance 6=Modified [place] 3=Moderate Assistance 7=Complete IndependenceSCALE: Activities may be completed with or without assistive devices. 9-Chyhyxinee-zfpytkv completes the activity by him/herself with no assistance fr om a helper. 5-Set-up or Clean-up Assistance-helper sets up or cleans up; patient completes activity. [place] assists only prior to or following the activity. 4-Supervision or Touching Assistance-helper provides verbal cues and/or touching/steadying and/or contact guard assistance as patient completes activity. Assistance may be provided throughout the activity or intermittently. 3-Partial/Moderate Assistance-helper does LESS THAN HALF the effort. [place] lifts, holds or supports trunk or limbs, but provides less than half the effort. 2-Substantial/Maximal Assistance-helper does MORE THAN HALF the effort. [place] lifts or holds trunk or limbs and provides more than half the effort. 9-Ooreuzzqc-zbytdd does ALL the effort. Patient does none of the effort to complete the activity. Or, the assistance of 2 or more helpers is required for the patient to complete the activity. If activity was not attempted, code reason: 7-Patient Refused. 9-Not Applicable-not attempted and the patient did not perform the activity before the current illness, exacerbation or injury. 10-Not Attempted due to Environmental Limitations-(lack of equipment, weather restraints, etc.). 88-Not Attempted due to Medical Conditions or Safety Concerns. Roll Left to Right (QC): 4 Sit to Lying (QC): 4 Sit to Stand (QC): 5 Chair/Hyh-ia-Mpxuw Xfer(QC): 4 (SBA) Car Transfer (QC): 3 (min assist to turn and with legs. ) Gait Training Does the Patient Walk?: Yes Distance: 225 Walk 10 feet (QC): 4 Walk 50 ft with 2 Turns(QC): 4 Walk 150 ft (QC): 4 Walking 10ft/uneven surface-QC: 4 Gait Persons Needed: 1 Gait Assistive Device: FWW Wheelchair Training Wheel 50 ft with 2 turns (QC): 9 Wheel 150 ft (QC): 9 Stair Training Stair Training: Handrails/: 2 handrails #of Steps: 4 1 Step (curb) (QC): 3 4 Steps (QC): 3 12 Steps (QC): 9 Stairs: Pattern: Step to Balance Picking up an Object (QC): 6 (seated position) ADL-Treatment Eating (QC): 5 (per report) Oral Hygiene (QC): 5 (setup) Shower/Bathe Self (QC): 4 (CGA for balance and cues for safety. Pt. impulsive at times in shower. Will sit, stand multiple times.) Upper Body Dressing (QC): 5 (setup) Lower Body Dressing (QC): 4 (CGA/SBA in shower to doff/don pants.) On/Off Footwear (QC): 5 (Slipper socks and slippers.) Toileting Hygiene (QC): 4 (SBA in stance. Pt. is incontinent of bowel due to medication, but she is able to cleanse self with SBA for balance and safety.) Assessment/Plan Assessment and Plan Assess & Plan/Chief Complaint Assessment: s/p craniotomy for cerebral aneurysm clipping 03/09/21 Loss of right sided peripheral vision Loos of balance Impulsiveness Type 2 diabetes. Depression. Dyslipidemia. Cedillo's palsy. Thyroid nodule. Obesity, 30.0-34.9 kg/sq m. Iron deficiency anemia. GERD. Hypertension. Posttraumatic stress disorder. Fatty liver. Chronic fatigue syndrome Plan: IRF protocol Pain control Home meds Steroids 03/17/2021: Continue insulin Therapy protocol Tylenol for headache 03/18/2021: Participating in therapy Blood sugar management Steroids for cerebral edema from neurosurgery 03/19/2021: Maintain Tylenol for headache Check labs in the morning Blood sugar management with steroids 03/20/2021: Supportive care Insulin management Steroid taper (1) Cerebral aneurysm (2) S/P craniotomy (3) Cerebral edema (4) Vision loss (5) Diabetes mellitus (6) Hypertension (7) BMI 31.0-31.9,adult (8) Anemia JERRI GARZA DO Mar 20, 2021 06:36
[2021-03-20 08:00] VITALS: BP 105/53
[2021-03-20] MEDS: DULoxetine 30 MG (CYMBALTA) CAP PO SCH ×2 (08:33→20:41)
[2021-03-20] MEDS: PANTOPRAZOLE 20 MG TABLET (PROTONIX) PO SCH (08:34)
[2021-03-20] MEDS: FERROUS SULF 325 MG (IRON) TAB PO SCH (08:34)
[2021-03-20] MEDS: lisINopril 10 MG (PRINIVIL) TABLET PO SCH (08:35)
[2021-03-20] MEDS: SENNA W/DOCUSATE (SENOKOT S) TABLET PO SCH ×2 (08:38→20:46)
[2021-03-20] MEDS: DOCUSATE SODIUM 100 MG (COLACE) CAP PO SCH ×2 (08:38→20:44)
[2021-03-20] MEDS: polyethylene glycoL POWDER 17 GM (MIRALAX) PACK PO SCH ×2 (08:38→20:45)
[2021-03-20] MEDS: meTOproloL SUCCINATE 50 MG (TOPROL XL) TAB PO SCH (09:00)
--- NOTE | 2021-03-20 11:00 | Physical Therapy Daily Note ---
PT Daily Note-Current Subjective Agreeable to PT. Reports she is always tired. Mental Status Patient Orientation: Person, Place, Time, Situation Transfers SCALE: Activities may be completed with or without assistive devices. 4-Tftxjpjskj-hjulxui completes the activity by him/herself with no assistance from a helper. 5-Set-up or Clean-up Assistance-helper sets up or cleans up; patient completes activity. [place] assists only prior to or following the activity. 4-Supervision or Touching Assistance-helper provides verbal cues and/or touching/steadying and/or contact guard assistance as patient completes activity. Assistance may be provided throughout the activity or intermittently. 3-Partial/Moderate Assistance-helper does LESS THAN HALF the effort. [place] lifts, holds or supports trunk or limbs, but provides less than half the effort. 2-Substantial/Maximal Assistance-helper does MORE THAN HALF the effort. [place] lifts or holds trunk or limbs and provides more than half the effort. 3-Qffqufwyg-btmvgg does ALL the effort. Patient does none of the effort to complete the activity. Or, the assistance of 2 or more helpers is required for the patient to complete the activity. If activity was not attempted, code reason: 7-Patient Refused. 9-Not Applicable-not attempted and the patient did not perform the activity before the current illness, exacerbation or injury. 10-Not Attempted due to Environmental Limitations-(lack of equipment, weather restraints, etc.). 88-Not Attempted due to Medical Conditions or Safety Concerns. Roll Left & Right (QC): 6 Sit to Lying (QC): 6 Lying to Sitting/Side of Bed(Q: 6 Sit to Stand (QC): 5 Chair/Fyn-yr-Gantm Xfer(QC): 5 Toilet Transfer (QC): 5 Weight Bearing Full Weight Bearing Full Weight Bearing Gait Training Does the Patient Walk?: Yes Walk 10 feet (QC): 6 Walk 50 ft with 2 Turns(QC): 4 Walk 150 ft (QC): 4 (SBA for safety. ) Gait Assistive Device: FWW Pt ambulated in her room with FWW mod indep and in/out of the bathroom. Pt ambulated 50 ft x4; 200 ft x 3 with FWW with SBA. Safe and steady Exercises Standing: Hip Abduction, Hamstring curls, Heel/toe raises, Marching, Mini squats Standing Reps: 15 NuStep Minutes: 15 Treatments Pt toileted twice during session; able to manage clothing and transfers on off toilet without assist. Pt in bed post treatment with needs met. Assessment Current Status: Good Progress Progressing. Gait, balance, safety and functional strength improved. PT Short Term Goals Short Term Goals Time Frame: Mar 23, 2021 Sit to lyin Lying to sitting on side of be: 6 Sit to stand: 5 Chair/onw-yg-xmiux transfer: 5 Walk 150 feet: 4 PT Paster Operator Goals Nursing Home Goals PT Paster Operator Goals Time Frame: Mar 31, 2021 Roll Left & Right (QC): 6 Sit to Lying (QC): 6 Lying-Sitting on Side/Bed(QC): 6 Sit to Stand (QC): 6 Chair/Hvf-ba-Kqhqu Xfer(QC): 6 Toilet Transfer (QC): 6 Car Transfer (QC): 6 Does the Patient Walk: Yes Walk 10 feet (QC): 6 Walk 50ft with 2 Turns (QC): 6 Walk 150 ft (QC): 6 Walking 10ft on Uneven Surface: 6 1 Step (curb) (QC): 6 4 Steps (QC): 6 12 Steps (QC): 4 Picking up an Object (QC): 5 Does the Pt use WC or Scooter?: No Wheel 50 feet with 2 turns (QC: 9 Wheel 150 feet: 9 PT Plan Problem List Problem List: Activity Tolerance, Functional Strength, Safety, Balance, Gait, Transfer, Bed Mobility Treatment/Plan Treatment Plan: Continue Plan of Care Treatment Plan: Bed Mobility, Education, Functional Activity Tracey, Functional Strength, Group Therapy, Gait, Safety, Therapeutic Exercise, Transfers Treatment Duration: Mar 31, 2021 Frequency: At least 5 of 7 days/Wk (IRF) Estimated Hrs Per Day: 1.5 hours per day Patient and/or Family Agrees t: Yes Safety Risks/Education Patient Education: Safety Issues Teaching Recipient: Patient Teaching Methods: Demonstration, Discussion Response to Teaching: Reinforcement Needed Time/GCodes Time In: 1000 Time Out: 1100 Total Billed Treatment Time: 60 Total Billed Treatment visit EX 30 GT 15 FA 15 CECILY MADERA PT Mar 20, 2021 11:00
--- NOTE | 2021-03-20 11:42 | Speech Therapy Daily Note ---
Speech Daily Progress Note Subjective Date Seen by Provider: Mar 20, 2021 Time Seen by Provider: 00:30 Patient was resting in bed when I entered her room. She stated she didn't go to sleep until 5:30am. Objective Patient completed OME while Vital Stim was on for 25 minutes set on 3/5 with 10% visual/verbal cuing. Assessment Assessment Current Status: Good Progress Treatment Plan Continue Plan of Care Speech Short Term Goals Short Term Goals Short Term Goals 1) Patient will complete oral motor exercises and vital stim to improve facial droop at 90% or greater. 2) Patient will complete memory skills related to her daily needs at 90% or greater with minimal cues. 3) Patient will complete safety awareness skills related to her daily needs at 90% or greater with minimal cues. Speech Half-Way Goals Contract Technical Writer Goals Patient will improve cognitive function and oral motor skills for improved cognitive-communication in order to require minimal assist. Speech-Plan Patient/Family Goals Patient/Family Goals: Patient plans on returning to her home where she lives with her and several family members. Treatment Plan Speech Therapy Treatment Plan: Continue Plan of Care Treatment Duration: Mar 31, 2021 Frequency: 2 times per week Estimated Hrs Per Day: .25 hour per day Rehab Potential: Good Barriers to Learning: New onset aneurysm surgery Pt/Family Agrees to Plan: Yes Safety Risks/Education Teaching Methods: Demonstration, Discussion Response to Teaching: Verbalize Understanding, Return Demonstration Education Topics Provided: Safety within her room, communication Time Speech Therapy Time In: 09:30 Speech Therapy Time Out: 10:00 Total Billed Time: 30 Billed Treatment Time 1GLO [address] Mar 20, 2021 11:42
--- NOTE | 2021-03-20 13:06 | Occupational Ther Daily Note ---
OT Current Status-Daily Note Subjective Pt seen in room, up in bed, agreeable to OT. No pain mentioned except that she had a slight headache. Appearance Alert, cooperative ADL-Treatment Pt stated that she was too tired to do ADLs and she did not need to toilet. Therapy Code Descriptions/Definitions Functional [place] Measure: 0=Not Assessed/NA 4=Minimal Assistance 1=Total Assistance 5=Supervision or Setup 2=Maximal Assistance 6=Modified [place] 3=Moderate Assistance 7=Complete IndependenceSCALE: Activities may be completed with or without assistive devices. 8-Gucatvnrrj-newunmi completes the activity by him/herself with no assistance from a helper. 5-Set-up or Clean-up Assistance-helper sets up or cleans up; patient completes activity. [place] assists only prior to or following the activity. 4-Supervision or Touching Assistance-helper provides verbal cues and/or touching/steadying and/or contact guard assistance as patient completes activity. Assistance may be provided throughout the activity or intermittently. 3-Partial/Moderate Assistance-helper does LESS THAN HALF the effort. [place] lifts, holds or supports trunk or limbs, but provides less than half the effort. 2-Substantial/Maximal Assistance-helper does MORE THAN HALF the effort. [place] lifts or holds trunk or limbs and provides more than half the effort. 9-Azwphkcib-ddqsho does ALL the effort. Patient does none of the effort to complete the activity. Or, the assistance of 2 or more helpers is required for the patient to complete the activity. If activity was not attempted, code reason: 7-Patient Refused. 9-Not Applicable-not attempted and the patient did not perform the activity before the current illness, exacerbation or injury. 10-Not Attempted due to Environmental Limitations-(lack of equipment, weather restraints, etc.). 88-Not Attempted due to Medical Conditions or Safety Concerns. Other Treatment Pt walked SBA, FWW to gym, with no LOB. She was able to get in/out of chair without difficulty. Pt worked with deck of playing cards, laying out a solitaire game. She had some difficulty understanding the rules but needed fewer cues as she practiced. She also seemed to have more difficulty finding items in her left visual field, requiring more cues than R side. She needed to stop periodically to rest her eyes. She denied double vision - she was able to read large print in her room on the board and identified items in her L visual field. Coordination activities needed for functional use of vision during ADL and other tasks. Pt walked back to her room with STEFAN RODRIGUEZW, with no LOB. Pt left sitting up at EOB, waiting for lunch, all needs met. Education OT Patient Education: Progress toward Goal/Update tx plan, Purpose of tx/functional activities, Other (pt educ on visual field loss) Teaching Recipient: Patient Teaching Methods: Discussion Response to Teaching: Verbalize Understanding, Return Demonstration, Reinforcement Needed OT Alf Goals Nutrient Management Specialist Goals Time Frame: Mar 30, 2021 Eating (QC): 6 Oral Hygiene (QC): 6 Toileting Hygiene (QC): 6 Shower/Bathe Self (QC): 6 Upper Body Dressing (QC): 6 Lower Body Dressing (QC): 6 On/Off Footwear (QC): 6 Additional Goals: 1-Demonstrate ADL Tasks, 2-Verbalize Understanding, 3- ImproveStrength/Tracey 1=Demonstrate adherence to instructed precautions during ADL tasks. 2=Patient will verbalize/demonstrate understanding of assistive devices/modifications for ADL. 3=Patient will improve strength/tolerance for activity to enable patient to perform ADL's. OT Education/Plan Discharge Recommendations Plan/Recommendations: Continue POC Treatment Plan/Plan of Care Patient would benefit from OT for education, treatment and training to promote independence in ADL's, mobility, safety and/or upper extremity function for ADL's. Plan of Care: ADL Retraining, Functional Mobility, UE Funct Exercise/Act, Visual/Perceptual Retrain Treatment Duration: Mar 30, 2021 Frequency: At least 5 of 7 days/Wk (IRF) Estimated Hrs Per Day: 1.5 hours per day Agreement: Yes Rehab Potential: Good Time/GCodes Start Time: 11:15 Stop Time: 12:00 Total Time Billed (hr/min): 45 Billed Treatment Time visit, 45 minutes neuromotor F[place]ON YI OT Mar 20, 2021 13:06
--- NOTE | 2021-03-20 14:22 | Therapy Group Daily Note ---
Therapy Daily Group Note Patient Education Topic Home Safety, Exercises Exercises LE Seated Exercise, Walking, UE Exercise Session Ratio (pt:therapist): 4:1 Goal of Session: Home Safety Strategies, UE/LE Strengthing Goal Met for this Session: Yes Pt Benefit of Group: Contributions to Others, F/U Use of Strategies @Home, Increased Functional Safety, Increased Functional Strength, Improved Cognition, Recognition of Peers, Socialization Other/Notes Patient ambulated with a rolling walker to the therapy gym and participated in group therapy with other patient's. Patient's had to introduce themselves and big foam dice to answer the selected question. Patient's then participated in a home safety education tool played like [employer] During this patient's also participated in UE and LE exercises. Afterward, patient ambulated back to her room and into bed with nurse call, phone, tray, all needs met. Start Time: 13:00 Stop Time: 14:00 Total Billed Treatment Time: 60 Total Billed Treatment 1 visit LUISA BETH PT Mar 20, 2021 14:22
[2021-03-20] MEDS: metFORMIN 500 MG (GLUCOPHAGE) TAB PO SCH (17:48)
[2021-03-20] MEDS: ACETAMINOPHEN 325 MG TABLET PO PRN (17:49)
[2021-03-20 20:00] VITALS: BP 94/53
[2021-03-20] MEDS: MELATONIN 3 MG TABLET PO PRN (20:42)
[2021-03-21] MEDS: inSUlin ASPART (NovoLOG) 1 UNIT/0.01 ML (CHARGE PER UNIT) SC SCH ×4 (06:00→20:36)
--- NOTE | 2021-03-21 06:39 | PM&R Progress Note ---
Subjective HPI/CC On Admission Date Seen by Provider: Mar 21, 2021 Time Seen by Provider: 10:30 Subjective/Events-last exam 03/21/2021: Pt doing pretty well Holding Toprol and Lisinopril for hold parameters She really looks good Melatonin helped the insomnia Neurosurgery will see her in follow up on Saturday03/20/2021: Pt doing pretty well Heart rate is bradycardic on Metoprolol so will hold it if it is less than 60 WBC is 18,000 from steroids 03/19/2021: Patient in good spirits today Bowels moved yesterday Tylenol given for the headache Air pocket in the incision at times which with an open craniotomy is not unusual No drainage Monitor closely 03/18/2021: Patient doing pretty well Had a small bowel movement today Sugar of 228 received sliding scale insulin regimen Steroids increasing sugar Check meds and labs 03/17/2021: Patient doing really well Up in chair Still very weak and tired Zofran and Tylenol given for headache White count 19.5 from steroid effect Doing well Blood sugars managed with insulin Review of Systems General: Fatigue Neurological: Weakness, Incoordination Objective Exam Vital Signs Vital Signs Date Time Temp Pulse Resp B/P (MAP) Pulse Ox O2 Delivery O2 Flow Rate FiO2 03/21/21 20:40 91 Room Air 03/21/21 20:00 36.0 65 16 104/57 (73) 03/19/21 21:30 93 Capillary Refill : General Appearance: No Apparent Distress, WD/WN, Chronically ill, Obese HEENT: PERRL/EOMI, Normal ENT Inspection, Pharynx Normal, Other (right sided peripheral vision deficit) Neck: Full Range of Motion, Normal Inspection, Non Tender, Supple, Carotid Bruit Respiratory: Chest Non Tender, Lungs Clear, Normal Breath Sounds, No Accessory Muscle Use, No Respiratory Distress Cardiovascular: Regular Rate, Rhythm, No Edema, No Gallop, No JVD, No Murmur, Normal Peripheral Pulses Gastrointestinal: Normal Bowel Sounds, No Organomegaly, No Pulsatile Mass, Non Tender, Soft Back: Normal Inspection, No CVA Tenderness, No Vertebral Tenderness Extremity: Normal Capillary Refill, Normal Inspection, Normal Range of Motion, Non Tender, No Calf Tenderness, No Pedal Edema Neurologic/Psychiatric: Alert, Oriented x3, No Motor/Sensory Deficits, legal support manager II- XII Norm as Tested, Abnormal Gait, Depressed Affect, Motor Weakness (generalized) Skin: Normal Color, Warm/Dry Lymphatic: No Adenopathy Results/Procedures Lab Patient resulted labs reviewed. FIM Transfers Therapy Code Descriptions/Definitions Functional [place] Measure: 0=Not Assessed/NA 4=Minimal Assistance 1=Total Assistance 5=Supervision or Setup 2=Maximal Assistance 6=Modified [place] 3=Moderate Assistance 7=Complete IndependenceSCALE: Activities may be completed with or without assistive devices. 6-Xaekcfqqfs-lamdcvw completes the activity by him/herself with no assistance from a helper. 5-Set-up or Clean-up Assistance-helper sets up or cleans up; patient completes activity. [place] assists only prior to or following the activity. 4-Supervision or Touching Assistance-helper provides verbal cues and/or touching/steadying and/or contact guard assistance as patient completes activity. Assistance may be provided throughout the activity or intermittently. 3-Partial/Moderate Assistance-helper does LESS THAN HALF the effort. [place] lifts, holds or supports trunk or limbs, but provides less than half the effort. 2-Substantial/Maximal Assistance-helper does MORE THAN HALF the effort. [place] lifts or holds trunk or limbs and provides more than half the effort. 8-Hnezrosgo-xjqnmq does ALL the effort. Patient does none of the effort to complete the activity. Or, the assistance of 2 or more helpers is required for the patient to complete the activity. If activity was not attempted, code reason: 7-Patient Refused. 9-Not Applicable-not attempted and the patient did not perform the activity before the current illness, exacerbation or injury. 10-Not Attempted due to Environmental Limitations-(lack of equipment, weather restraints, etc.). 88-Not Attempted due to Medical Conditions or Safety Concerns. Roll Left to Right (QC): 6 Sit to Lying (QC): 6 Sit to Stand (QC): 5 Chair/Biz-xp-Oivdm Xfer(QC): 5 Car Transfer (QC): 3 (min assist to turn and with legs. ) Gait Training Does the Patient Walk?: Yes Distance: 225 Walk 10 feet (QC): 6 Walk 50 ft with 2 Turns(QC): 4 Walk 150 ft (QC): 4 (SBA for safety. ) Walking 10ft/uneven surface-QC: 4 Gait Persons Needed: 1 Gait Assistive Device: FWW Wheelchair Training Wheel 50 ft with 2 turns (QC): 9 Wheel 150 ft (QC): 9 Stair Training Stair Training: Handrails/: 2 handrails #of Steps: 4 1 Step (curb) (QC): 3 4 Steps (QC): 3 12 Steps (QC): 9 Stairs: Pattern: Step to Balance Picking up an Object (QC): 6 (seated position) ADL-Treatment Eating (QC): 5 (per report) Oral Hygiene (QC): 5 (setup) Shower/Bathe Self (QC): 4 (CGA for balance and cues for safety. Pt. impulsive at times in shower. Will sit, stand multiple times.) Upper Body Dressing (QC): 5 (setup) Lower Body Dressing (QC): 4 (CGA/SBA in shower to doff/don pants.) On/Off Footwear (QC): 5 (Slipper socks and slippers.) Toileting Hygiene (QC): 4 (SBA in stance. Pt. is incontinent of bowel due to medication, but she is able to cleanse self with SBA for balance and safety.) Assessment/Plan Assessment and Plan Assess & Plan/Chief Complaint Assessment: s/p craniotomy for cerebral aneurysm clipping 03/09/21 Loss of right sided peripheral vision Loos of balance Impulsiveness Type 2 diabetes. Depression. Dyslipidemia. Cedillo's palsy. Thyroid nodule. Obesity, 30.0-34.9 kg/sq m. Iron deficiency anemia. GERD. Hypertension. Posttraumatic stress disorder. Fatty liver. Chronic fatigue syndrome Plan: IRF protocol Pain control Home meds Steroids 03/17/2021: Continue insulin Therapy protocol Tylenol for headache 03/18/2021: Participating in therapy Blood sugar management Steroids for cerebral edema from neurosurgery 03/19/2021: Maintain Tylenol for headache Check labs in the morning Blood sugar management with steroids 03/20/2021: Supportive care Insulin management Steroid taper 03/21/2021: Monitor closely Discharge plan for later in the week (1) Cerebral aneurysm (2) S/P craniotomy (3) Cerebral edema (4) Vision loss (5) Diabetes mellitus (6) Hypertension (7) BMI 31.0-31.9,adult (8) Anemia JERRI GARZA DO Mar 21, 2021 06:39
[2021-03-21 08:00] VITALS: BP 91/54
[2021-03-21] MEDS: FERROUS SULF 325 MG (IRON) TAB PO SCH (08:02)
[2021-03-21] MEDS: PANTOPRAZOLE 20 MG TABLET (PROTONIX) PO SCH (08:02)
[2021-03-21] MEDS: DULoxetine 30 MG (CYMBALTA) CAP PO SCH ×2 (08:02→20:34)
[2021-03-21] MEDS: DOCUSATE SODIUM 100 MG (COLACE) CAP PO SCH ×2 (08:03→20:50)
[2021-03-21] MEDS: polyethylene glycoL POWDER 17 GM (MIRALAX) PACK PO SCH ×2 (08:03→20:50)
[2021-03-21] MEDS: SENNA W/DOCUSATE (SENOKOT S) TABLET PO SCH ×2 (08:03→20:50)
[2021-03-21] MEDS: lisINopril 10 MG (PRINIVIL) TABLET PO SCH (09:00)
[2021-03-21] MEDS: meTOproloL SUCCINATE 50 MG (TOPROL XL) TAB PO SCH (09:00)
--- NOTE | 2021-03-21 10:05 | Physical Therapy Daily Note ---
PT Daily Note-Current Subjective Pt laying Supine in bed upon arrival. Pt agrees to PT. Mental Status Patient Orientation: Person, Place, Situation Transfers SCALE: Activities may be completed with or without assistive devices. 0-Gnltfbwiet-elaxmdf completes the activity by him/herself with no assistance from a helper. 5-Set-up or Clean-up Assistance-helper sets up or cleans up; patient completes activity. [place] assists only prior to or following the activity. 4-Supervision or Touching Assistance-helper provides verbal cues and/or touching/steadying and/or contact guard assistance as patient completes activity. Assistance may be provided throughout the activity or intermittently. 3-Partial/Moderate Assistance-helper does LESS THAN HALF the effort. [place] lifts, holds or supports trunk or limbs, but provides less than half the effort. 2-Substantial/Maximal Assistance-helper does MORE THAN HALF the effort. [place] lifts or holds trunk or limbs and provides more than half the effort. 3-Ugmumaqht-bjzxbw does ALL the effort. Patient does none of the effort to complete the activity. Or, the assistance of 2 or more helpers is required for the patient to complete the activity. If activity was not attempted, code reason: 7-Patient Refused. 9-Not Applicable-not attempted and the patient did not perform the activity before the current illness, exacerbation or injury. 10-Not Attempted due to Environmental Limitations-(lack of equipment, weather restraints, etc.). 88-Not Attempted due to Medical Conditions or Safety Concerns. Sit to Lying (QC): 5 Lying to Sitting/Side of Bed(Q: 5 Sit to Stand (QC): 5 Toilet Transfer (QC): 5 Weight Bearing Full Weight Bearing Full Weight Bearing Gait Training Does the Patient Walk?: Yes Distance: 250' x2 Walk 10 feet (QC): 5 Walk 50 ft with 2 Turns(QC): 5 Walk 150 ft (QC): 5 Gait Persons Needed: 1 Gait Assistive Device: FWW Wheelchair Training Does the Pt Use a Wheelchair?: No Stair Training Stair Training: Handrails/: 2 handrails #of Steps: 4 1 Step (curb) (QC): 5 4 Steps (QC): 5 Stairs: Pattern: Step to Exercises Seated Therapy Exercises: Ankle pumps, Long arc quads (2# ankle weight), Hip flexion (2# ankle weight), Glut set Treatments TF to standing and uses BR. Pt amb. in hallway then completes Seated EX. Pt amb. set of 4 steps. Pt amb. in hallway and returns to room to rest in bed. All needs met, call light in hand. Assessment Current Status: Good Progress Pt is improving with strength and activity tolerance. PT Short Term Goals Short Term Goals Time Frame: Mar 23, 2021 Sit to lyin Lying to sitting on side of be: 6 Sit to stand: 5 Chair/trf-du-dtcyu transfer: 5 Walk 150 feet: 4 PT Railroad Passenger Agent Goals Shelter Goals PT Shelter Goals Time Frame: Mar 31, 2021 Roll Left & Right (QC): 6 Sit to Lying (QC): 6 Lying-Sitting on Side/Bed(QC): 6 Sit to Stand (QC): 6 Chair/Isn-bc-Cpzcu Xfer(QC): 6 Toilet Transfer (QC): 6 Car Transfer (QC): 6 Does the Patient Walk: Yes Walk 10 feet (QC): 6 Walk 50ft with 2 Turns (QC): 6 Walk 150 ft (QC): 6 Walking 10ft on Uneven Surface: 6 1 Step (curb) (QC): 6 4 Steps (QC): 6 12 Steps (QC): 4 Picking up an Object (QC): 5 Does the Pt use WC or Scooter?: No Wheel 50 feet with 2 turns (QC: 9 Wheel 150 feet: 9 PT Plan Treatment/Plan Treatment Plan: Continue Plan of Care Treatment Plan: Bed Mobility, Education, Functional Activity Tracey, Functional Strength, Group Therapy, Gait, Safety, Therapeutic Exercise, Transfers Treatment Duration: Mar 31, 2021 Frequency: At least 5 of 7 days/Wk (IRF) Estimated Hrs Per Day: 1.5 hours per day Patient and/or Family Agrees t: Yes Safety Risks/Education Patient Education: Gait Training, Correct Positioning, Safety Issues Teaching Recipient: Patient Teaching Methods: Discussion Response to Teaching: Verbalize Understanding Time/GCodes Time In: 900 Time Out: 945 Total Billed Treatment Time: 45 Total Billed Treatment 1, FA (15m), GT (15m) & EX (15m) JESSENIA GUERRA SPAR MACHINE OPERATOR HELPER Mar 21, 2021 10:05
--- NOTE | 2021-03-21 10:38 | Occupational Ther Daily Note ---
OT Current Status-Daily Note ADL-Treatment Therapy Code Descriptions/Definitions Functional [place] Measure: 0=Not Assessed/NA 4=Minimal Assistance 1=Total Assistance 5=Supervision or Setup 2=Maximal Assistance 6=Modified [place] 3=Moderate Assistance 7=Complete IndependenceSCALE: Activities may be completed with or without assistive devices. 2-Drpnbiojoa-yrlocws completes the activity by him/herself with no assistance from a helper. 5-Set-up or Clean-up Assistance-helper sets up or cleans up; patient completes activity. [place] assists only prior to or following the activity. 4-Supervision or Touching Assistance-helper provides verbal cues and/or touching/steadying and/or contact guard assistance as patient completes activity. Assistance may be provided throughout the activity or intermittently. 3-Partial/Moderate Assistance-helper does LESS THAN HALF the effort. [place] lifts, holds or supports trunk or limbs, but provides less than half the effort. 2-Substantial/Maximal Assistance-helper does MORE THAN HALF the effort. [place] lifts or holds trunk or limbs and provides more than half the effort. 0-Ljwxpxeab-uacgcv does ALL the effort. Patient does none of the effort to complete the activity. Or, the assistance of 2 or more helpers is required for the patient to complete the activity. If activity was not attempted, code reason: 7-Patient Refused. 9-Not Applicable-not attempted and the patient did not perform the activity before the current illness, exacerbation or injury. 10-Not Attempted due to Environmental Limitations-(lack of equipment, weather restraints, etc.). 88-Not Attempted due to Medical Conditions or Safety Concerns. Eating (QC): 6 (IND, pt able to use utensils to cut food and eat without difficulty. ) Oral Hygiene (QC): 6 (IND) Shower/Bathe Self (QC): 6 (IND, pt able to wash/dry all parts. ) Upper Body Dressing (QC): 6 (IND, pt able to doff/don bra and shoe puller shirt.) Lower Body Dressing (QC): 6 (IND with donning/dofffing pants and underwear ) On/Off Footwear: 6 (IND donning slippers.) Toileting Hygiene (QC): 7 (Pt declined) Toilet Transfer (QC): 7 (Pt declined.) Other Treatment Pt in bed completing oral care, used FWW to gather clothing from around her room and transferred into bathroom. Pt doffed clothes, transferred into shower onto SC. Pt completed shower, washing below the neck, OT offered pt to assist with washing part of her hair while keeping incision dry, she declined washing hair on this date. Pt dried off and donned clothes. Pt used FWW to perform functional mobility to therapy gym. Pt completed peg darnell task in order to increase R visual scanning, pt able to complete task without cues. Pt then sorted deck of card, first by suit, then by card, pt required minimal cues with task, primarily with spade cards while sorting suits and with face cards with sequencing. Pt put 100 piece puzzle together in order to increase visual scanning, visual attention, and fine motor coordination. Pt began by sorting edge pieces, able to complete all edge pieces without cues, self correcting as needed. Pt used FWW to return to room, SBA, transferred back to bed. Post tx, pt laying in bed, call light in reach and all needs met. Education OT Patient Education: Correct positioning, Modified ADL techniques, Progress toward Goal/Update tx plan, Purpose of tx/functional activities Teaching Recipient: Patient Teaching Methods: Discussion Response to Teaching: Verbalize Understanding OT [facility] Goals Engagement Director Goals Time Frame: Mar 30, 2021 Eating (QC): 6 Oral Hygiene (QC): 6 Toileting Hygiene (QC): 6 Shower/Bathe Self (QC): 6 Upper Body Dressing (QC): 6 Lower Body Dressing (QC): 6 On/Off Footwear (QC): 6 Additional Goals: 1-Demonstrate ADL Tasks, 2-Verbalize Understanding, 3- ImproveStrength/Tracey 1=Demonstrate adherence to instructed precautions during ADL tasks. 2=Patient will verbalize/demonstrate understanding of assistive devices/modifications for ADL. 3=Patient will improve strength/tolerance for activity to enable patient to perform ADL's. OT Education/Plan Problem List/Assessment Assessment: Decreased Activ Tolerance, Decreased UE Strength, Impaired I ADL's, Impaired Self-Care Skills, Visual-Perceptual Deficit Discharge Recommendations Plan/Recommendations: Continue POC Treatment Plan/Plan of Care Patient would benefit from OT for education, treatment and training to promote independence in ADL's, mobility, safety and/or upper extremity function for ADL's. Plan of Care: ADL Retraining, Functional Mobility, UE Funct Exercise/Act, Visual/Perceptual Retrain Treatment Duration: Mar 30, 2021 Frequency: At least 5 of 7 days/Wk (IRF) Estimated Hrs Per Day: 1.5 hours per day Agreement: Yes Rehab Potential: Good Time/GCodes Start Time: 10:00 Stop Time: 11:15 Total Time Billed (hr/min): 75 Billed Treatment Time 1, ADL 2 (30'), FA 3 (45') DARCY FORD OT Mar 21, 2021 10:37
--- NOTE | 2021-03-21 11:58 | Speech Therapy Daily Note ---
Speech Daily Progress Note Subjective Date Seen by Provider: Mar 21, 2021 Time Seen by Provider: 00:30 Patient seen in her room for speech therapy. Patient was resting in her bed following her other therapies. Objective Patient completed 10 sets of OME while Vital Stim on 4.5 for 25 minutes. Assessment Assessment Current Status: Good Progress Treatment Plan Continue Plan of Care Speech Short Term Goals Short Term Goals Short Term Goals 1) Patient will complete oral motor exercises and vital stim to improve facial droop at 90% or greater. 2) Patient will complete memory skills related to her daily needs at 90% or greater with minimal cues. 3) Patient will complete safety awareness skills related to her daily needs at 90% or greater with minimal cues. Speech Intermediate Goals Intermediate Goals Patient will improve cognitive function and oral motor skills for improved cognitive-communication in order to require minimal assist. Speech-Plan Patient/Family Goals Patient/Family Goals: Patient plans on returning to her home where she lives with her and several other family members. Treatment Plan Speech Therapy Treatment Plan: Continue Plan of Care Treatment Duration: Mar 31, 2021 Frequency: 4 times per week (Patient receives ST 4-5x per week) Estimated Hrs Per Day: .25 hour per day Rehab Potential: Good Barriers to Learning: Patient's recent brain surgery Pt/Family Agrees to Plan: Yes Safety Risks/Education Teaching Recipient: Patient Teaching Methods: Demonstration, Discussion Response to Teaching: Verbalize Understanding, Return Demonstration Education Topics Provided: Continued safety within her room and communication of wants/needs Time Speech Therapy Time In: 11:15 Speech Therapy Time Out: 11:45 Total Billed Time: 30 Billed Treatment Time 1, ALEXANDRA Yee Mar 21, 2021 11:58
--- NOTE | 2021-03-21 13:27 | Physical Therapy Daily Note ---
PT Daily Note-Current Subjective Pt sitting up in bed upon arrival. Pt had just finished lunch. Pt agrees to PT. Pain Location: No Pain Reported Mental Status Patient Orientation: Person, Place, Situation Attachments: Other-See Comments (Eye patch for R eye) Transfers SCALE: Activities may be completed with or without assistive devices. 0-Amwoldqxoz-iiycdkn completes the activity by him/herself with no assistance from a helper. 5-Set-up or Clean-up Assistance-helper sets up or cleans up; patient completes activity. [place] assists only prior to or following the activity. 4-Supervision or Touching Assistance-helper provides verbal cues and/or touching/steadying and/or contact guard assistance as patient completes activity. Assistance may be provided throughout the activity or intermittently. 3-Partial/Moderate Assistance-helper does LESS THAN HALF the effort. [place] lifts, holds or supports trunk or limbs, but provides less than half the effort. 2-Substantial/Maximal Assistance-helper does MORE THAN HALF the effort. [place] lifts or holds trunk or limbs and provides more than half the effort. 7-Rcvqvcyst-mzyuna does ALL the effort. Patient does none of the effort to complete the activity. Or, the assistance of 2 or more helpers is required for the patient to complete the activity. If activity was not attempted, code reason: 7-Patient Refused. 9-Not Applicable-not attempted and the patient did not perform the activity before the current illness, exacerbation or injury. 10-Not Attempted due to Environmental Limitations-(lack of equipment, weather restraints, etc.). 88-Not Attempted due to Medical Conditions or Safety Concerns. Sit to Lying (QC): 6 Lying to Sitting/Side of Bed(Q: 6 Sit to Stand (QC): 6 Toilet Transfer (QC): 6 Weight Bearing Full Weight Bearing Full Weight Bearing Gait Training Does the Patient Walk?: Yes Distance: 175' Walk 10 feet (QC): 5 Walk 50 ft with 2 Turns(QC): 5 Walk 150 ft (QC): 5 Gait Persons Needed: 1 Gait Assistive Device: FWW Pt uses eye patch for blurry vision in R eye. Treatments TF to standing and uses BR. Pt amb. in hallway using eye patch to assist with blurry/double vision in R eye. Pt returns to room at end of tx. All needs met, pt resting in bed with call light in hand. Assessment Current Status: Good Progress Pt reports feeling more comfortable with amb. using eye patch. 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 PT [facility] Goals Time Frame: Mar 31, 2021 Roll Left & Right (QC): 6 Sit to Lying (QC): 6 Lying-Sitting on Side/Bed(QC): 6 Sit to Stand (QC): 6 Chair/Adk-ih-Kkgci Xfer(QC): 6 Toilet Transfer (QC): 6 Car Transfer (QC): 6 Does the Patient Walk: Yes Walk 10 feet (QC): 6 Walk 50ft with 2 Turns (QC): 6 Walk 150 ft (QC): 6 Walking 10ft on Uneven Surface: 6 1 Step (curb) (QC): 6 4 Steps (QC): 6 12 Steps (QC): 4 Picking up an Object (QC): 5 Does the Pt use WC or Scooter?: No Wheel 50 feet with 2 turns (QC: 9 Wheel 150 feet: 9 PT Plan Treatment/Plan Treatment Plan: Continue Plan of Care Treatment Plan: Bed Mobility, Education, Functional Activity Tracey, Functional Strength, Group Therapy, Gait, Safety, Therapeutic Exercise, Transfers Treatment Duration: Mar 31, 2021 Frequency: At least 5 of 7 days/Wk (IRF) Estimated Hrs Per Day: 1.5 hours per day Patient and/or Family Agrees t: Yes Safety Risks/Education Patient Education: Gait Training, Correct Positioning, Safety Issues Teaching Recipient: Patient Teaching Methods: Discussion Response to Teaching: Verbalize Understanding Time/GCodes Time In: 1300 Time Out: 1330 Total Billed Treatment Time: 30 Total Billed Treatment 1, FA (15m) & GT (15m) JESSENIA GUERRA TELE TECH Mar 21, 2021 13:27
[2021-03-21] MEDS: metFORMIN 500 MG (GLUCOPHAGE) TAB PO SCH (17:44)
[2021-03-21 20:00] VITALS: BP 104/57
[2021-03-21] MEDS: MELATONIN 3 MG TABLET PO PRN (20:34)
[2021-03-22] MEDS: ACETAMINOPHEN 325 MG TABLET PO PRN (05:09)
[2021-03-22] MEDS: inSUlin ASPART (NovoLOG) 1 UNIT/0.01 ML (CHARGE PER UNIT) SC SCH ×4 (06:00→21:32)
--- NOTE | 2021-03-22 06:21 | PM&R Progress Note ---
Subjective HPI/CC On Admission Date Seen by Provider: Mar 22, 2021 Time Seen by Provider: 10:00 Subjective/Events-last exam 03/22/21: Pt doing well Discharging Bowels moved today Has no complaints Dramatic improvement in her status 03/21/2021: Pt doing pretty well Holding Toprol and Lisinopril for hold parameters She really looks good Melatonin helped the insomnia Neurosurgery will see her in follow up on Saturday03/20/2021: Pt doing pretty well Heart rate is bradycardic on Metoprolol so will hold it if it is less than 60 WBC is 18,000 from steroids 03/19/2021: Patient in good spirits today Bowels moved yesterday Tylenol given for the headache Air pocket in the incision at times which with an open craniotomy is not unusual No drainage Monitor closely 03/18/2021: Patient doing pretty well Had a small bowel movement today Sugar of 228 received sliding scale insulin regimen Steroids increasing sugar Check meds and labs 03/17/2021: Patient doing really well Up in chair Still very weak and tired Zofran and Tylenol given for headache White count 19.5 from steroid effect Doing well Blood sugars managed with insulin Review of Systems General: Fatigue, Malaise Neurological: Weakness, Incoordination Objective Exam Vital Signs Vital Signs Date Time Temp Pulse Resp B/P (MAP) Pulse Ox O2 Delivery O2 Flow Rate FiO2 03/22/21 21:41 91 Room Air 03/22/21 20:00 36.6 52 20 97/54 (68) 03/19/21 21:30 93 Capillary Refill : General Appearance: No Apparent Distress, WD/WN, Chronically ill, Obese HEENT: PERRL/EOMI, Normal ENT Inspection, Pharynx Normal, Other (right sided peripheral vision deficit) Neck: Full Range of Motion, Normal Inspection, Non Tender, Supple, Carotid Bruit Respiratory: Chest Non Tender, Lungs Clear, Normal Breath Sounds, No Accessory Muscle Use, No Respiratory Distress Cardiovascular: Regular Rate, Rhythm, No Edema, No Gallop, No JVD, No Murmur, Normal Peripheral Pulses Gastrointestinal: Normal Bowel Sounds, No Organomegaly, No Pulsatile Mass, Non Tender, Soft Back: Normal Inspection, No CVA Tenderness, No Vertebral Tenderness Extremity: Normal Capillary Refill, Normal Inspection, Normal Range of Motion, Non Tender, No Calf Tenderness, No Pedal Edema Neurologic/Psychiatric: Alert, Oriented x3, No Motor/Sensory Deficits, hospitalist medical director II- XII Norm as Tested, Abnormal Gait, Depressed Affect, Motor Weakness (generalized) Skin: Normal Color, Warm/Dry Lymphatic: No Adenopathy Results/Procedures Lab Patient resulted labs reviewed. FIM Transfers Therapy Code Descriptions/Definitions Functional [place] Measure: 0=Not Assessed/NA 4=Minimal Assistance 1=Total Assistance 5=Supervision or Setup 2=Maximal Assistance 6=Modified [place] 3=Moderate Assistance 7=Complete IndependenceSCALE: Activities may be completed with or without assistive devices. 4-Hisuevkyiz-zmcchrz completes the activity by him/herself with no assistance from a helper. 5-Set-up or Clean-up Assistance-helper sets up or cleans up; patient completes activity. [place] assists only prior to or following the activity. 4-Supervision or Touching Assistance-helper provides verbal cues and/or touching/steadying and/or contact guard assistance as patient completes activity. Assistance may be provided throughout the activity or intermittently. 3-Partial/Moderate Assistance-helper does LESS THAN HALF the effort. [place] lifts, holds or supports trunk or limbs, but provides less than half the effort. 2-Substantial/Maximal Assistance-helper does MORE THAN HALF the effort. [place] lifts or holds trunk or limbs and provides more than half the effort. 6-Vquszwoln-fubolp does ALL the effort. Patient does none of the effort to complete the activity. Or, the assistance of 2 or more helpers is required for the patient to complete the activity. If activity was not attempted, code reason: 7-Patient Refused. 9-Not Applicable-not attempted and the patient did not perform the activity before the current illness, exacerbation or injury. 10-Not Attempted due to Environmental Limitations-(lack of equipment, weather restraints, etc.). 88-Not Attempted due to Medical Conditions or Safety Concerns. Roll Left to Right (QC): 6 Sit to Lying (QC): 6 Sit to Stand (QC): 6 Chair/Mjn-wj-Tpubv Xfer(QC): 5 Car Transfer (QC): 3 (min assist to turn and with legs. ) Gait Training Does the Patient Walk?: Yes Distance: 175' Walk 10 feet (QC): 5 Walk 50 ft with 2 Turns(QC): 5 Walk 150 ft (QC): 5 Walking 10ft/uneven surface-QC: 4 Gait Persons Needed: 1 Gait Assistive Device: FWW Wheelchair Training Does the Pt Use a Wheelchair?: No Wheel 50 ft with 2 turns (QC): 9 Wheel 150 ft (QC): 9 Stair Training Stair Training: Handrails/: 2 handrails #of Steps: 4 1 Step (curb) (QC): 5 4 Steps (QC): 5 12 Steps (QC): 9 Stairs: Pattern: Step to Balance Picking up an Object (QC): 6 (seated position) ADL-Treatment Eating (QC): 6 (IND, pt able to use utensils to cut food and eat without difficulty. ) Oral Hygiene (QC): 6 (IND) Shower/Bathe Self (QC): 6 (IND, pt able to wash/dry all parts. ) Upper Body Dressing (QC): 6 (IND, pt able to doff/don bra and lumber puller shirt.) Lower Body Dressing (QC): 6 (IND with donning/dofffing pants and underwear ) On/Off Footwear (QC): 6 (IND donning slippers.) Toileting Hygiene (QC): 7 (Pt declined) Toilet Transfer (QC): 7 (Pt declined.) Assessment/Plan Assessment and Plan Assess & Plan/Chief Complaint Assessment: s/p craniotomy for cerebral aneurysm clipping 03/09/21 Loss of right sided peripheral vision Loos of balance Impulsiveness Type 2 diabetes. Depression. Dyslipidemia. Cedillo's palsy. Thyroid nodule. Obesity, 30.0-34.9 kg/sq m. Iron deficiency anemia. GERD. Hypertension. Posttraumatic stress disorder. Fatty liver. Chronic fatigue syndrome Plan: IRF protocol Pain control Home meds Steroids 03/17/2021: Continue insulin Therapy protocol Tylenol for headache 03/18/2021: Participating in therapy Blood sugar management Steroids for cerebral edema from neurosurgery 03/19/2021: Maintain Tylenol for headache Check labs in the morning Blood sugar management with steroids 03/20/2021: Supportive care Insulin management Steroid taper 03/21/2021: Monitor closely Discharge plan for later in the week 03/22/21: DC tomorrow (1) Cerebral aneurysm (2) S/P craniotomy (3) Cerebral edema (4) Vision loss (5) Diabetes mellitus (6) Hypertension (7) BMI 31.0-31.9,adult (8) Anemia JERRI GARZA 16, 2021 06:21
[2021-03-22 07:44] VITALS: BP 123/64
[2021-03-22] MEDS: lisINopril 10 MG (PRINIVIL) TABLET PO SCH (09:04)
[2021-03-22] MEDS: FERROUS SULF 325 MG (IRON) TAB PO SCH (09:04)
[2021-03-22] MEDS: DULoxetine 30 MG (CYMBALTA) CAP PO SCH ×2 (09:04→21:21)
--- NOTE | 2021-03-22 09:11 | Speech Therapy Daily Note ---
Speech Daily Progress Note Subjective Date Seen by Provider: Mar 22, 2021 Time Seen by Provider: 00:30 Patient was resting in bed, states she slept well last night. Objective Patient completed 10 sets of OME with Vital Stim on 4.0 at 25 minutes Assessment Assessment Current Status: Good Progress Treatment Plan Continue Plan of Care Speech Short Term Goals Short Term Goals Short Term Goals 1) Patient will complete oral motor exercises and vital stim to improve facial droop at 90% or greater. 2) Patient will complete memory skills related to her daily needs at 90% or greater with minimal cues. 3) Patient will complete safety awareness skills related to her daily needs at 90% or greater with minimal cues. Speech Water Project Engineer Goals Water Project Engineer Goals Patient will improve cognitive function and oral motor skills for improved cognitive-communication in order to require minimal assist. Speech-Plan Patient/Family Goals Patient/Family Goals: Patient plans on returning home where she lives with her and other family members. Patient hopes to be discharged tomorrow due to an early doctor appt. on Saturday. Treatment Plan Speech Therapy Treatment Plan: Continue Plan of Care Treatment Duration: Mar 31, 2021 Frequency: 4 times per week (Patient receives ST 4-5x per week) Estimated Hrs Per Day: .25 hour per day Rehab Potential: Good Barriers to Learning: Patient's recent brain surgery Pt/Family Agrees to Plan: Yes Safety Risks/Education Teaching Recipient: Patient Teaching Methods: Demonstration, Discussion Response to Teaching: Verbalize Understanding, Return Demonstration Education Topics Provided: Safety with oral intake, OME for home program Time Speech Therapy Time In: 08:30 Speech Therapy Time Out: 09:00 Total Billed Time: 30 Billed Treatment Time 1, ALEXANDRA Yee Mar 22, 2021 09:11
[2021-03-22] MEDS: PANTOPRAZOLE 20 MG TABLET (PROTONIX) PO SCH (09:13)
[2021-03-22] MEDS: meTOproloL SUCCINATE 50 MG (TOPROL XL) TAB PO SCH (09:14)
--- NOTE | 2021-03-22 09:48 | Physical Therapy Daily Note ---
PT Daily Note-Current Subjective Pt laying L sidelying upon arrival. Pt agrees to PT. Mental Status Patient Orientation: Person, Place, Time, Situation Attachments: Other-See Comments (Eye Patch only for close distance, used when on phone) Transfers SCALE: Activities may be completed with or without assistive devices. 5-Pzucahctve-nbeseeo completes the activity by him/herself with no assistance from a helper. 5-Set-up or Clean-up Assistance-helper sets up or cleans up; patient completes activity. [place] assists only prior to or following the activity. 4-Supervision or Touching Assistance-helper provides verbal cues and/or touching /steadying and/or contact guard assistance as patient completes activity. Assistance may be provided throughout the activity or intermittently. 3-Partial/Moderate Assistance-helper does LESS THAN HALF the effort. [place] lifts, holds or supports trunk or limbs, but provides less than half the effort. 2-Substantial/Maximal Assistance-helper does MORE THAN HALF the effort. [place] lifts or holds trunk or limbs and provides more than half the effort. 4-Laepwjgar-mbpmjd does ALL the effort. Patient does none of the effort to complete the activity. Or, the assistance of 2 or more helpers is required for the patient to complete the activity. If activity was not attempted, code reason: 7-Patient Refused. 9-Not Applicable-not attempted and the patient did not perform the activity before the current illness, exacerbation or injury. 10-Not Attempted due to Environmental Limitations-(lack of equipment, weather restraints, etc.). 88-Not Attempted due to Medical Conditions or Safety Concerns. Roll Left & Right (QC): 6 Sit to Lying (QC): 6 Lying to Sitting/Side of Bed(Q: 6 Sit to Stand (QC): 6 Chair/Hzo-tn-Rupvf Xfer(QC): 6 Toilet Transfer (QC): 6 Car Transfer (QC): 6 Weight Bearing Full Weight Bearing Full Weight Bearing Gait Training Does the Patient Walk?: Yes Distance: 300' Walk 10 feet (QC): 6 Walk 50 ft with 2 Turns(QC): 6 Walk 150 ft (QC): 6 Walking 10ft/uneven surface-QC: 6 Gait Persons Needed: 0 Gait Assistive Device: FWW Wheelchair Training Does the Pt Use a Wheelchair?: No Stair Training Stair Training: Handrails/: 2 handrails #of Steps: 12 1 Step (curb) (QC): 6 4 Steps (QC): 6 12 Steps (QC): 6 Stairs: Pattern: Reciprocal Balance Picking up an Object (QC): 6 Special Test Comments Pt able to picker object but will use kosher sealer or have Sp assist due to increased pressure when bending over. Exercises Supine Ex: Ankle pumps, Quad Set, Glut sets, Heel Slides, Short Arc Quads, Straight leg raise, Hip abd/add Supine Reps: 15 Seated Therapy Exercises: Ankle pumps, Long arc quads, Hip flexion, Glut set Seated Reps: 15 Treatments Pt completes QC scoring items listed above. Pt returns to room to rest in bed upon arrival. All needs met, call light in hand. Assessment Current Status: Good Progress Pt has greatly improved with activity tolerance and balance. Pt is excited for tomorrow's DC. PT Short Term Goals Short Term Goals Time Frame: Mar 23, 2021 Sit to lyin Lying to sitting on side of be: 6 Sit to stand: 5 Chair/awo-as-nqytr transfer: 5 Walk 150 feet: 4 PT Care Home Goals Bezel Cutter Goals PT Bezel Cutter Goals Time Frame: Mar 31, 2021 Roll Left & Right (QC): 6 Sit to Lying (QC): 6 Lying-Sitting on Side/Bed(QC): 6 Sit to Stand (QC): 6 Chair/Vip-yr-Oatde Xfer(QC): 6 Toilet Transfer (QC): 6 Car Transfer (QC): 6 Does the Patient Walk: Yes Walk 10 feet (QC): 6 Walk 50ft with 2 Turns (QC): 6 Walk 150 ft (QC): 6 Walking 10ft on Uneven Surface: 6 1 Step (curb) (QC): 6 4 Steps (QC): 6 12 Steps (QC): 4 Picking up an Object (QC): 5 Does the Pt use WC or Scooter?: No Wheel 50 feet with 2 turns (QC: 9 Wheel 150 feet: 9 PT Plan Treatment/Plan Treatment Plan: Continue Plan of Care Treatment Plan: Bed Mobility, Education, Functional Activity Tracey, Functional Strength, Group Therapy, Gait, Safety, Therapeutic Exercise, Transfers Treatment Duration: Mar 31, 2021 Frequency: At least 5 of 7 days/Wk (IRF) Estimated Hrs Per Day: 1.5 hours per day Patient and/or Family Agrees t: Yes Safety Risks/Education Patient Education: Issued Written HEP Teaching Recipient: Patient Teaching Methods: Demonstration, Discussion Response to Teaching: Verbalize Understanding, Return Demonstration Time/GCodes Time In: 900 Time Out: 1000 Total Billed Treatment Time: 60 Total Billed Treatment 1, GT (15m), FA x2 (30m) & EX (15m) JESSENIA GUERRA OFFSET LITHOGRAPHIC PRESS OPERATOR Mar 22, 2021 09:48
--- NOTE | 2021-03-22 10:12 | Occupational Ther Daily Note ---
OT Current Status-Daily Note Subjective Pt denies pain, agreeable to OT tx. Mental Status/Objective Patient Orientation: Normal For Age ADL-Treatment Therapy Code Descriptions/Definitions Functional [place] Measure: 0=Not Assessed/NA 4=Minimal Assistance 1=Total Assistance 5=Supervision or Setup 2=Maximal Assistance 6=Modified [place] 3=Moderate Assistance 7=Complete IndependenceSCALE: Activities may be completed with or without assistive devices. 7-Aopubwdppr-tidhaxc completes the activity by him/herself with no assistance from a helper. 5-Set-up or Clean-up Assistance-helper sets up or cleans up; patient completes activity. [place] assists only prior to or following the activity. 4-Supervision or Touching Assistance-helper provides verbal cues and/or touching/steadying and/or contact guard assistance as patient completes activity. Assistance may be provided throughout the activity or intermittently. 3-Partial/Moderate Assistance-helper does LESS THAN HALF the effort. [place] lifts, holds or supports trunk or limbs, but provides less than half the effort. 2-Substantial/Maximal Assistance-helper does MORE THAN HALF the effort. [place] lifts or holds trunk or limbs and provides more than half the effort. 0-Jlwrrqnrf-ttgefm does ALL the effort. Patient does none of the effort to complete the activity. Or, the assistance of 2 or more helpers is required for the patient to complete the activity. If activity was not attempted, code reason: 7-Patient Refused. 9-Not Applicable-not attempted and the patient did not perform the activity before the current illness, exacerbation or injury. 10-Not Attempted due to Environmental Limitations-(lack of equipment, weather restraints, etc.). 88-Not Attempted due to Medical Conditions or Safety Concerns. Toileting Hygiene (QC): 6 (Per pt and PT report, able to complete clothing management and hygiene) Toilet Transfer (QC): 6 (Per pt and PT report, pt IND with task.) Other Treatment Pt laying in bed, used FWW to perform functional mobility to therapy gym independently. OT tx focused on increasing fine motor coordination, visual scanning and visual attention. Pt denies blurry/double vision at this time, indicating it feels normal. Pt completed puzzle task, placing 100 piece puzzle together. Pt required rest breaks to rest her eyes, indicating her vision was getting blurrier as she continued with task. OT educated pt on vision strategies, including using contrasting backgrounds with task, she verbalized understanding. Pt used FWW to return to her room, transferring to bed. Post tx, pt laying in bed, call light in reach and all needs met. Education OT Patient Education: Correct positioning, Modified ADL techniques, Progress toward Goal/Update tx plan, Purpose of tx/functional activities Teaching Recipient: Patient Teaching Methods: Discussion Response to Teaching: Verbalize Understanding OT Halfway Goals Halfway Goals Time Frame: Mar 30, 2021 Eating (QC): 6 Oral Hygiene (QC): 6 Toileting Hygiene (QC): 6 Shower/Bathe Self (QC): 6 Upper Body Dressing (QC): 6 Lower Body Dressing (QC): 6 On/Off Footwear (QC): 6 Additional Goals: 1-Demonstrate ADL Tasks, 2-Verbalize Understanding, 3- ImproveStrength/Tracey 1=Demonstrate adherence to instructed precautions during ADL tasks. 2=Patient will verbalize/demonstrate understanding of assistive devices/modifications for ADL. 3=Patient will improve strength/tolerance for activity to enable patient to perform ADL's. OT Education/Plan Problem List/Assessment Assessment: Decreased Activ Tolerance, Decreased UE Strength, Impaired I ADL's, Visual-Perceptual Deficit Discharge Recommendations Plan/Recommendations: Continue POC Treatment Plan/Plan of Care Patient would benefit from OT for education, treatment and training to promote independence in ADL's, mobility, safety and/or upper extremity function for ADL's. Plan of Care: ADL Retraining, Functional Mobility, UE Funct Exercise/Act, Visual/Perceptual Retrain Treatment Duration: Mar 30, 2021 Frequency: At least 5 of 7 days/Wk (IRF) Estimated Hrs Per Day: 1.5 hours per day Agreement: Yes Rehab Potential: Good Time/GCodes Start Time: 10:00 Stop Time: 11:00 Total Time Billed (hr/min): 60 Billed Treatment Time 1, FA 4 (60') DARCY FORD OT Mar 22, 2021 10:12
[2021-03-22] MEDS: SENNA W/DOCUSATE (SENOKOT S) TABLET PO SCH ×2 (10:18→19:44)
[2021-03-22] MEDS: polyethylene glycoL POWDER 17 GM (MIRALAX) PACK PO SCH ×2 (10:18→19:44)
[2021-03-22] MEDS: DOCUSATE SODIUM 100 MG (COLACE) CAP PO SCH ×2 (10:18→19:43)
--- NOTE | 2021-03-22 14:56 | Therapy Group Daily Note ---
Therapy Daily Group Note Patient Education Topic Other List Below (Memory & Memory Strategies) Exercises LE Seated Exercise, UE Exercise Session Ratio (pt:therapist): 4:1 Goal of Session: Memory Strategies, UE/LE Strengthing Goal Met for this Session: Yes Pt Benefit of Group: Contributions to Others, F/U Use of Strategies @Home, Increased Functional Safety, Increased Functional Strength, Improved Cognition, Recognition of Peers, Socialization Other/Notes Pt ambulates to PT/OT Group. Group consists of Introduction (Name, Where from & What makes you the happiest), Socialization, UE & LE Exercises, Memory & Memory Strategy topic and activity. Pt is able to complete Exercises as well as cite individual examples of strategies. Pt also actively listens to other patients during Group. Pt returns to room at end of Group with all needs met, call light in hand. Start Time: 13:00 Stop Time: 14:15 Total Billed Treatment Time: 75 Total Billed Treatment 1, GRP JESSENIA GUERRA [facility] Mar 22, 2021 14:56
[2021-03-22] MEDS: metFORMIN 500 MG (GLUCOPHAGE) TAB PO SCH (17:15)
[2021-03-22 20:00] VITALS: BP 97/54
[2021-03-22] MEDS: MELATONIN 3 MG TABLET PO PRN (21:21)
[2021-03-23] MEDS ORDERED: DULO30CA3 PO (05:33)
[2021-03-23] MEDS ORDERED: HYDR-3820 PO (05:33)
[2021-03-23] MEDS ORDERED: LISI10TA25 PO (05:33)
[2021-03-23] MEDS ORDERED: DEXA4TAB PO (05:33)
--- NOTE | 2021-03-23 05:34 | Discharge Summary ---
Diagnosis/Chief Complaint Date of Admission Mar 16, 2021 at 13:40 Date of Discharge Discharge Date: Mar 23, 2021 Discharge Diagnosis Assessment: s/p craniotomy for cerebral aneurysm clipping 03/09/21 Loss of right sided peripheral vision Loos of balance Impulsiveness Type 2 diabetes. Depression. Dyslipidemia. Cedillo's palsy. Thyroid nodule. Obesity, 30.0-34.9 kg/sq m. Iron deficiency anemia. GERD. Hypertension. Posttraumatic stress disorder. Fatty liver. Chronic fatigue syndrome Plan: IRF protocol Pain control Home meds Steroids 03/17/2021: Continue insulin Therapy protocol Tylenol for headache 03/18/2021: Participating in therapy Blood sugar management Steroids for cerebral edema from neurosurgery 03/19/2021: Maintain Tylenol for headache Check labs in the morning Blood sugar management with steroids 03/20/2021: Supportive care Insulin management Steroid taper 03/21/2021: Monitor closely Discharge plan for later in the week 03/22/21: DC tomorrow (1) Cerebral aneurysm (2) S/P craniotomy (3) Cerebral edema (4) Vision loss (5) Diabetes mellitus (6) Hypertension (7) BMI 31.0-31.9,adult (8) Anemia Discharge Summary Discharge Physical Examination Allergies: Coded Allergies: No Allergy Information Available (Unverified , 03/16/21) Vitals & I&Os Vital Signs Date Time Temp Pulse Resp B/P (MAP) Pulse Ox O2 Delivery O2 Flow Rate FiO2 03/23/21 11:00 36.2 49 16 100/52 95 Room Air 03/19/21 21:30 93 General Appearance: Alert, Oriented X3, Cooperative Respiratory: Clear to Auscultation Cardiovascular: Regular Rate Neuro: Normal Gait, Normal Speech, Strength at 5/5 X4 Ext Psych/Mental Status: Mental Status NL Hospital Course Was the Problem List Reviewed?: Yes Patient had an uneventful rehab hospital course after she was admitted from craniotomy after procedure for cerebral aneurysm. Decadron was maintained which increased blood sugars managed with insulin. Blood pressure remained stable. Overall patient was able to regain enough function with physical therapy and Occupational Therapy to regain independent ADLs and ambulatory function with the use of a walker. Overall she was comfortable with discharge with close follow- up with neurosurgery. Labs (last 24 hrs) Laboratory Tests 03/16/21 15:28: Glucometer 245H 03/16/21 20:22: Glucometer 232H 03/17/21 05:08: White Blood Count 19.5H, Red Blood Count 6.16H, Hemoglobin 16.5H, Hematocrit 52, Mean Corpuscular Volume 85, Mean Corpuscular Hemoglobin 27, Mean Corpuscular Hemoglobin Concent 32, Red Cell Distribution Width 15.1H, Platelet Count 293, Mean Platelet Volume 11.3, Immature Granulocyte % (Auto) 1, Neutrophils (%) (Auto) 63, Lymphocytes (%) (Auto) 30, Monocytes (%) (Auto) 5, Eosinophils (%) (Auto) 2, Basophils (%) (Auto) 0, Neutrophils # (Auto) 12.3H, Lymphocytes # (Auto) 5.9H, Monocytes # (Auto) 0.9, Eosinophils # (Auto) 0.3, Basophils # (Auto) 0.0, Immature Granulocyte # (Auto) 0.1, Neutrophils % (Manual) 66, Lymphocytes % (Manual) 28, Monocytes % (Manual) 4, Eosinophils % (Manual) 1, Band Neutrophils 1, Blood Morphology Comment NORMAL, Sodium Level 135, Potassium Level 4.4, Chloride Level 98, Carbon Dioxide Level 23, Anion Gap 14, Blood Urea Nitrogen 25H, Creatinine 0.67, Estimat Glomerular Filtration Rate > 60, BUN/Creatinine Ratio 37, Glucose Level 157H, Calcium Level 10.3H, Corrected Calcium 10.3H, Total Bilirubin 0.8, Aspartate Amino Transf (AST/SGOT) 17, Alanine Aminotransferase (ALT/SGPT) 32, Alkaline Phosphatase 101, Total Protein 8.1, Albumin 4.0 03/17/21 11:48: Glucometer 194H 03/17/21 15:28: Glucometer 221H 03/17/21 21:06: Glucometer 199H 03/18/21 06:04: Glucometer 129H 03/18/21 10:49: Glucometer 228H 03/18/21 15:49: Glucometer 219H 03/18/21 20:31: Glucometer 175H 03/19/21 06:03: Glucometer 165H 03/19/21 10:51: Glucometer 190H 03/19/21 15:39: Glucometer 253H 03/19/21 21:28: Glucometer 125H 03/20/21 05:11: White Blood Count 18.0H, Red Blood Count 5.42H, Hemoglobin 14.5, Hematocrit 46, Mean Corpuscular Volume 84, Mean Corpuscular Hemoglobin 27, Mean Corpuscular Hemoglobin Concent 32, Red Cell Distribution Width 15.0H, Platelet Count 247, Mean Platelet Volume 11.6, Immature Granulocyte % (Auto) 0, Neutrophils (%) (Auto) 48, Lymphocytes (%) (Auto) 44, Monocytes (%) (Auto) 5, Eosinophils (%) (Auto) 3, Basophils (%) (Auto) 0, Neutrophils # (Auto) 8.7H, Lymphocytes # (Auto) 8.0H, Monocytes # (Auto) 0.8, Eosinophils # (Auto) 0.5H, Basophils # (Auto) 0.0, Immature Granulocyte # (Auto) 0.1, Sodium Level 136, Potassium Level 4.0, Chloride Level 103, Carbon Dioxide Level 23, Anion Gap 10, Blood Urea Nitrogen 23H, Creatinine 0.64, Estimat Glomerular Filtration Rate > 60, BUN/Creatinine Ratio 36, Glucose Level 134H, Calcium Level 9.9, Corrected Calcium 10.2H, Total Bilirubin 0.4, Aspartate Amino Transf (AST/SGOT) 23, Alanine Aminotransferase (ALT/SGPT) 32, Alkaline Phosphatase 82, Total Protein 6.9, Albumin 3.6 03/20/21 12:01: Glucometer 203H 03/20/21 16:38: Glucometer 235H 03/20/21 20:18: Glucometer 199H 03/21/21 06:02: Glucometer 123H 03/21/21 10:41: Glucometer 189H 03/21/21 16:11: Glucometer 244H 03/21/21 20:01: Glucometer 192H 03/22/21 05:09: Glucometer 131H 03/22/21 11:06: Glucometer 175H 03/22/21 15:37: Glucometer 230H 03/22/21 21:19: Glucometer 119H 03/23/21 05:27: Glucometer 127H Pending Labs Laboratory Tests 03/16/21 15:28: Glucometer 245 03/16/21 20:22: Glucometer 232 03/17/21 05:08: White Blood Count 19.5, Red Blood Count 6.16, Hemoglobin 16.5, Hematocrit 52, Mean Corpuscular Volume 85, Mean Corpuscular Hemoglobin 27, Mean Corpuscular Hemoglobin Concent 32, Red Cell Distribution Width 15.1, Platelet Count 293, Mean Platelet Volume 11.3, Immature Granulocyte % (Auto) 1, Neutrophils (%) (Auto) 63, Lymphocytes (%) (Auto) 30, Monocytes (%) (Auto) 5, Eosinophils (%) (Auto) 2, Basophils (%) (Auto) 0, Neutrophils # (Auto) 12.3, Lymphocytes # (Auto) 5.9, Monocytes # (Auto) 0.9, Eosinophils # (Auto) 0.3, Basophils # (Auto) 0.0, Immature Granulocyte # (Auto) 0.1, Neutrophils % (Manual) 66, Lymphocytes % (Manual) 28, Monocytes % (Manual) 4, Eosinophils % (Manual) 1, Band Neutrophils 1, Blood Morphology Comment NORMAL, Sodium Level 135, Potassium Level 4.4, Chloride Level 98, Carbon Dioxide Level 23, Anion Gap 14, Blood Urea Nitrogen 25, Creatinine 0.67, Estimat Glomerular Filtration Rate > 60, BUN/Creatinine Ratio 37, Glucose Level 157, Calcium Level 10.3, Corrected Calcium 10.3, Total Bilirubin 0.8, Aspartate Amino Transf (AST/SGOT) 17, Alanine Aminotransferase (ALT/SGPT) 32, Alkaline Phosphatase 101, Total Protein 8.1, Albumin 4.0 03/17/21 11:48: Glucometer 194 03/17/21 15:28: Glucometer 221 03/17/21 21:06: Glucometer 199 03/18/21 06:04: Glucometer 129 03/18/21 10:49: Glucometer 228 03/18/21 15:49: Glucometer 219 03/18/21 20:31: Glucometer 175 03/19/21 06:03: Glucometer 165 03/19/21 10:51: Glucometer 190 03/19/21 15:39: Glucometer 253 03/19/21 21:28: Glucometer 125 03/20/21 05:11: White Blood Count 18.0, Red Blood Count 5.42, Hemoglobin 14.5, Hematocrit 46, Mean Corpuscular Volume 84, Mean Corpuscular Hemoglobin 27, Mean Corpuscular Hemoglobin Concent 32, Red Cell Distribution Width 15.0, Platelet Count 247, Mean Platelet Volume 11.6, Immature Granulocyte % (Auto) 0, Neutrophils (%) (Auto) 48, Lymphocytes (%) (Auto) 44, Monocytes (%) (Auto) 5, Eosinophils (%) (A uto) 3, Basophils (%) (Auto) 0, Neutrophils # (Auto) 8.7, Lymphocytes # (Auto) 8.0, Monocytes # (Auto) 0.8, Eosinophils # (Auto) 0.5, Basophils # (Auto) 0.0, Immature Granulocyte # (Auto) 0.1, Sodium Level 136, Potassium Level 4.0, Chloride Level 103, Carbon Dioxide Level 23, Anion Gap 10, Blood Urea Nitrogen 23, Creatinine 0.64, Estimat Glomerular Filtration Rate > 60, BUN/Creatinine Ratio 36, Glucose Level 134, Calcium Level 9.9, Corrected Calcium 10.2, Total Bilirubin 0.4, Aspartate Amino Transf (AST/SGOT) 23, Alanine Aminotransferase (ALT/SGPT) 32, Alkaline Phosphatase 82, Total Protein 6.9, Albumin 3.6 03/20/21 12:01: Glucometer 203 03/20/21 16:38: Glucometer 235 03/20/21 20:18: Glucometer 199 03/21/21 06:02: Glucometer 123 03/21/21 10:41: Glucometer 189 03/21/21 16:11: Glucometer 244 03/21/21 20:01: Glucometer 192 03/22/21 05:09: Glucometer 131 03/22/21 11:06: Glucometer 175 03/22/21 15:37: Glucometer 230 03/22/21 21:19: Glucometer 119 03/23/21 05:27: Glucometer 127 Discharge Home Medications: Active Scripts Active Dexamethasone 4 Mg Tablet 2 Mg PO DAILY@0800 Cymbalta (Duloxetine HCl) 30 Mg Capsule.dr 60 Mg PO BID Lisinopril 10 Mg Tablet 10 Mg PO DAILY Hydrocodone-Acetamin 10-325 mg (Hydrocodone/Acetaminophen) 1 Each Tablet 1 Each PO Q6H PRN Reported Atorvastatin Calcium 40 Mg Tablet 40 Mg PO HS Omeprazole 10 Mg Capsule.dr 10 Mg PO DAILY Novolog (Insulin Aspart) 100 Unit/1 Ml Susp 5-20 Unit SQ TIDWM Metoprolol Succinate 50 Mg Tab.er.24h 50 Mg PO DAILY Metformin HCl 500 Mg Tablet 1,000 Mg PO 1800 W/MEAL Levemir (Insulin Determir) 1,000 Units/10 Ml Soln 35 Units SQ HS Jardiance (Empagliflozin) 25 Mg Tablet 25 Mg PO DAILY Ferrous Sulfate 325 Mg Tablet 325 Mg PO DAILY Instructions to patient/family Please see electronic discharge instructions given to patient. Diagnosis/Problems Diagnosis/Problems (1) Cerebral aneurysm (2) S/P craniotomy (3) Cerebral edema (4) Vision loss (5) Diabetes mellitus (6) Hypertension (7) BMI 31.0-31.9,adult (8) Anemia JERRI GARZA DO Mar 23, 2021 05:34
[2021-03-23] MEDS: inSUlin ASPART (NovoLOG) 1 UNIT/0.01 ML (CHARGE PER UNIT) SC SCH (05:44)
[2021-03-23] MEDS: PANTOPRAZOLE 20 MG TABLET (PROTONIX) PO SCH (07:51)
[2021-03-23] MEDS: FERROUS SULF 325 MG (IRON) TAB PO SCH (07:51)
[2021-03-23] MEDS: DULoxetine 30 MG (CYMBALTA) CAP PO SCH (07:52)
[2021-03-23 08:07] VITALS: BP 93/49
[2021-03-23] MEDS: DOCUSATE SODIUM 100 MG (COLACE) CAP PO SCH (09:16)
[2021-03-23] MEDS: SENNA W/DOCUSATE (SENOKOT S) TABLET PO SCH (09:16)
[2021-03-23] MEDS: meTOproloL SUCCINATE 50 MG (TOPROL XL) TAB PO SCH (09:16)
[2021-03-23] MEDS: polyethylene glycoL POWDER 17 GM (MIRALAX) PACK PO SCH (09:16)
[2021-03-23] MEDS: lisINopril 10 MG (PRINIVIL) TABLET PO SCH (09:16)
--- NOTE | 2021-03-23 09:45 | Therapy Team Discharge Summary ---
Therapy Discharge Summary Discharge Recommendations Date of Discharge Occupational Therapy Decreased Activ Tolerance, Decreased UE Strength, Impaired I ADL's, Visual- Perceptual Deficit Speech-Language Pathology Patient was admitted to the ARU following Cedillo's Palsy which led to CT scan. The scan revealed a brain aneurysm which she had surgery for. She received OM therapy for the right side droop. Patient progressed well and met ST goals. She is discharging to her home where she lives with her and other family members. PT Skilled Nursing Goals Endoscopic Technician Goals PT Endoscopic Technician Goals Time Frame: Mar 31, 2021 Roll Left to Right (QC): 6 Sit to Lying (QC): 6 Lying-Sitting on Side/Bed(QC): 6 Sit to Stand (QC): 6 Chair/Qju-xo-Zodpe Xfer(QC): 6 Car Transfer (QC): 6 Does the Patient Walk: Yes Walk 10 feet (QC): 6 Walk 10ft-Uneven Surface(QC): 6 Walk 50ft with 2 Turns (QC): 6 Walk 150 ft (QC): 6 Does the Pt use WC or Scooter?: No Wheel 50 feet with 2 turns (QC: 9 1 Step (curb) (QC): 6 4 Steps (QC): 6 12 Steps (QC): 4 Picking up an Object (QC): 5 OT Endoscopic Technician Goals Skilled Nursing Goals Time Frame: Mar 30, 2021 Eating (QC): 6 Oral Hygiene (QC): 6 Shower/Bathe Self (QC): 6 Upper Body Dressing (QC): 6 Lower Body Dressing (QC): 6 On/Off Footwear (QC): 6 Toileting Hygiene (QC): 6 Toilet/Commode Transfer (QC): 6 Additional Goals: 1-Demonstrate ADL Tasks, 2-Verbalize Understanding, 3- ImproveStrength/Tracey 1=Demonstrate adherence to instructed precautions during ADL tasks. 2=Patient will verbalize/demonstrate understanding of assistive devices/modifica tions for ADL. 3=Patient will improve strength/tolerance for activity to enable patient to perform ADL's. Speech Endoscopic Technician Goals Skilled Nursing Goals Patient will improve cognitive function and oral motor skills for improved co gnitive-communication in order to require minimal assist. ALEXANDRA HECK Mar 23, 2021 09:45
--- NOTE | 2021-03-23 09:46 | Therapy Team Discharge Summary ---
Therapy Discharge Summary Discharge Recommendations Date of Discharge Occupational Therapy Pt admitted to ARU with cerebral aneurysm. At [facility], pt was independent with ADLs at [facility]. Upon initial evaluation, pt reequired set up assistance with eating and oral care, CGA showering, CGA upper/lower body dressing, set up footwear and SBA toileting. OT tx focused on increasing BUE strength and activity tolerance, visual scanning/visual attention, and increasing safety and independence with ADLs and functional mobility. Pt made good progress towards goals, meeting IND level with all LTGs. Pt's family has obtained AE/DME, no further recommendations at this time. Pt to discharge from facility on this date, d/c from OT at this time. Decreased Activ Tolerance, Decreased UE Strength, Impaired I ADL's, Visual- Perceptual Deficit PT Prison Goals Prison Goals PT Bottle Blower Goals Time Frame: Mar 31, 2021 Roll Left to Right (QC): 6 Sit to Lying (QC): 6 Lying-Sitting on Side/Bed(QC): 6 Sit to Stand (QC): 6 Chair/Seh-rf-Pkqtq Xfer(QC): 6 Car Transfer (QC): 6 Does the Patient Walk: Yes Walk 10 feet (QC): 6 Walk 10ft-Uneven Surface(QC): 6 Walk 50ft with 2 Turns (QC): 6 Walk 150 ft (QC): 6 Does the Pt use WC or Scooter?: No Wheel 50 feet with 2 turns (QC: 9 1 Step (curb) (QC): 6 4 Steps (QC): 6 12 Steps (QC): 4 Picking up an Object (QC): 5 OT Prison Goals Bottle Blower Goals Time Frame: Mar 30, 2021 Eating (QC): 6 (met) Oral Hygiene (QC): 6 (met) Shower/Bathe Self (QC): 6 (met) Upper Body Dressing (QC): 6 (met) Lower Body Dressing (QC): 6 (met) On/Off Footwear (QC): 6 (met) Toileting Hygiene (QC): 6 (met) Toilet/Commode Transfer (QC): 6 (met) Additional Goals: 1-Demonstrate ADL Tasks, 2-Verbalize Understanding, 3- ImproveStrength/Tracey 1=Demonstrate adherence to instructed precautions during ADL tasks. 2=Patient will verbalize/demonstrate understanding of assistive devices/modifications for ADL. 3=Patient will improve strength/tolerance for activity to enable patient to perform ADL's. Speech Prison Goals Bottle Blower Goals Patient will improve cognitive function and oral motor skills for improved cognitive-communication in order to require minimal assist. DARCY FORD OT Mar 23, 2021 09:46
[2021-03-23 11:00] VITALS: BP 100/52
--- NOTE | 2021-03-23 15:31 | Therapy Team Discharge Summary ---
Therapy Discharge Summary Discharge Recommendations Date of Discharge Mar 23, 2021 at 11:00 Physical Therapy Patient came to rehab following a Cerebral aneurysm. Upon evaluation patient performed bed mobility and supine <-> sit with CGA, sit <-> stand and transfers with CGA, car transfer min assist, and ambulated 150' with a rolling walker with min assist (including 50' with at least 2 turns of 90 degrees). Patient has been performing bed mobility and transfer training, balance and endurance training, functional strengthening, stair training, gait training, and edu cation. Patient has made good progress and has met all of her roasterman goals. Now, patient performs bed mobility and transfers with independence, independent with car transfer, ambulates 300' with a rolling walker with independence (including 50' with at least 2 turns of 90 degrees and 10' over an uneven surface), can sweet pickled fruit maker an object from the floor with independence, and can go up and down 12 steps using 2 handrails with independence. Patient was discharged from this facility today and will be discharged from PT at this time. Occupational Therapy Decreased Activ Tolerance, Decreased UE Strength, Impaired I ADL's, Visual- Perceptual Deficit PT Deputy Sheriff Building Guard Goals Shelter Goals PT Deputy Sheriff Building Guard Goals Time Frame: Mar 31, 2021 Roll Left to Right (QC): 6 Sit to Lying (QC): 6 Lying-Sitting on Side/Bed(QC): 6 Sit to Stand (QC): 6 Chair/Rae-wn-Vnldy Xfer(QC): 6 Car Transfer (QC): 6 Does the Patient Walk: Yes Walk 10 feet (QC): 6 Walk 10ft-Uneven Surface(QC): 6 Walk 50ft with 2 Turns (QC): 6 Walk 150 ft (QC): 6 Does the Pt use WC or Scooter?: No Wheel 50 feet with 2 turns (QC: 9 1 Step (curb) (QC): 6 4 Steps (QC): 6 12 Steps (QC): 4 Picking up an Object (QC): 5 OT Shelter Goals Shelter Goals Time Frame: Mar 30, 2021 Eating (QC): 6 (met) Oral Hygiene (QC): 6 (met) Shower/Bathe Self (QC): 6 (met) Upper Body Dressing (QC): 6 (met) Lower Body Dressing (QC): 6 (met) On/Off Footwear (QC): 6 (met) Toileting Hygiene (QC): 6 (met) Toilet/Commode Transfer (QC): 6 (met) Additional Goals: 1-Demonstrate ADL Tasks, 2-Verbalize Understanding, 3- ImproveStrength/Tracey 1=Demonstrate adherence to instructed precautions during ADL tasks. 2=Patient will verbalize/demonstrate understanding of assistive devices/modifications for ADL. 3=Patient will improve strength/tolerance for activity to enable patient to perform ADL's. Speech Deputy Sheriff Building Guard Goals Shelter Goals Patient will improve cognitive function and oral motor skills for improved cognitive-communication in order to require minimal assist. LUISA CASTANEDA PT Mar 23, 2021 15:31
== END 2021-03-23 11:00 | disposition home or self-care (01) | DRG 950 ==
PROVIDERS: ADMIT Internal Medicine; ATTEND Internal Medicine
DX: Z48.812 Encounter for surgical aftercare following surgery on the circulatory system (principal); G51.0 Bell's palsy; R26.81 Unsteadiness on feet; H54.61 Unqualified visual loss, right eye, normal vision left eye; R45.87 Impulsiveness; Z91.81 History of falling; E11.9 Type 2 diabetes mellitus without complications; F32.9 Major depressive disorder, single episode, unspecified; E78.5 Hyperlipidemia, unspecified; E66.9 Obesity, unspecified; Z68.33 Body mass index [BMI] 33.0-33.9, adult; D50.9 Iron deficiency anemia, unspecified; K21.9 Gastro-esophageal reflux disease without esophagitis; I10 Essential (primary) hypertension; F43.10 Post-traumatic stress disorder, unspecified; K75.81 Nonalcoholic steatohepatitis (NASH); R53.82 Chronic fatigue, unspecified; M19.91 Primary osteoarthritis, unspecified site; F41.9 Anxiety disorder, unspecified
CPT/HCPCS: 36415; 80053; 82947; 85007; 85025; 85027